=== PATIENT | female | born 1960 | race Caucasian/White ===

== ENCOUNTER 2019-12-17 23:23 | Emergency (ER) | payer MEDICARE, BC ==
[~2019-12-17] VITALS: Ht 165.1 cm; Wt 59.1 kg
[~2019-12-17 23:23] MED LIST: DIVA125C2 PO; HALO10TA13 PO; HALO5TAB PO; LAMO100T PO; LAMO200T2 PO; LAMO25TA5 PO; MULT1CAP44 PO; OMEG-107 PO; PANT40TA4 PO; QUET-1 PO; QUET400T54 PO; SENN-162 PO; SERT100T PO
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
[2019-12-18] MEDS ORDERED: HYDROcodone/acetaminophen 5mg/325mg tablet PO ONE (00:25)
[2019-12-18 00:46] VITALS: BP 94/64
== END 2019-12-18 00:56 | disposition home or self-care (01) ==
LOC: ER 23:23
DX: S22.31XA Fracture of one rib, right side, initial encounter for closed fracture (principal); F31.9 Bipolar disorder, unspecified; Z88.6 Allergy status to analgesic agent; Z88.8 Allergy status to other drugs, medicaments and biological substances; Z79.899 Other long term (current) drug therapy; W01.198A Fall on same level from slipping, tripping and stumbling with subsequent striking against other object, initial encounter; Y93.89 Activity, other specified; Y92.89 Other specified places as the place of occurrence of the external cause; Y99.9 Unspecified external cause status
CPT/HCPCS: 93005; 99284

== ENCOUNTER 2020-03-02 16:47 | Emergency (ER) | payer MEDICARE, BC ==
[~2020-03-02] VITALS: Ht 162.6 cm; Wt 118.0 kg
[~2020-03-02 16:47] MED LIST changes: +DIVA-81 PO; -DIVA125C2 PO; -HALO10TA13 PO; -HALO5TAB PO; +IBUP-1985 PO; -LAMO100T PO; -LAMO200T2 PO; +LAMO25TA41 PO; -MULT1CAP44 PO; -OMEG-107 PO; -QUET-1 PO; -QUET400T54 PO; -SENN-162 PO; -SERT100T PO; +ZIPR20CA12 PO
[2020-03-02] MEDS ORDERED: LITH300C PO (17:07)
[2020-03-02] MEDS ORDERED: QUET-1 PO (17:07)
[2020-03-02] MEDS ORDERED: QUET400T PO (17:07)
[2020-03-02] MEDS ORDERED: BUPR150T8 PO (17:07)
[2020-03-02] MEDS ORDERED: LURA80TA3 PO (17:07)
[2020-03-02 17:36] LABS: BASOPHILS # (AUTO) 0.1 X10'3 (0-0.2); BASOPHILS % (AUTO) 0.8 % (0-1); EOSINOPHILS # (AUTO) 0.1 X10'3 (0-0.9); HEMATOCRIT 37.4 % (35.0-45.0); HEMOGLOBIN 12.7 g/dl (12.0-16.0); LYMPHOCYTES # (AUTO) 3.4 X10'3 (1.1-4.8); LYMPHOCYTES % (AUTO) 56.2 % (21-51); MEAN CORPUSCULAR HEMOGLOBIN 32.8 PG (27.0-31.0); MEAN CORPUSCULAR VOLUME 96.3 FL (78-98); MEAN PLATELET VOLUME 7.6 FL (7.4-10.4); MONOCYTES # (AUTO) 0.6 X10'3 (0-0.9); MONOCYTES % (AUTO) 9.9 % (2-12); NEUTROPHILS # (AUTO) 1.9 X10'3 (1.8-7.7); NEUTROPHILS % (AUTO) 31.1 % (42-75); PLATELET COUNT 387 X10'3 (140-440); RED BLOOD COUNT 3.88 X10'6 (4.20-5.60); RED CELL DISTRIBUTION WIDTH 14.1 % (11.5-14.5)
[2020-03-02 17:59] LABS: ALANINE AMINOTRANSFERASE 18 U/L (12-78); ALBUMIN 3.5 G/DL (3.4-5.0); ALBUMIN/GLOBULIN RATIO 1.1 (1.1-1.5); ALKALINE PHOSPHATASE 80 IU/L (46-116); ANION GAP 9 (8-16); ASPARTATE AMINO TRANSFERASE 20 U/L (10-37); BILIRUBIN,TOTAL 0.4 MG/DL (0.1-1.0); BLOOD UREA NITROGEN 11 MG/DL (7-18); BUN/CREATININE RATIO 13.4 (6.6-38.0); CALCIUM 9.2 MG/DL (8.5-10.1); CHLORIDE 106 MMOL/L (99-107); CREATININE 0.82 MG/DL (0.40-0.90); ETHANOL < 0.010 GM/DL (0.0-0.010); GLUCOSE 83 MG/DL (70-104); POTASSIUM 3.2 MMOL/L (3.5-5.1); SODIUM 142 MMOL/L (135-145); TOTAL CARBON DIOXIDE 27.5 MMOL/L (24-32); TOTAL PROTEIN 6.8 G/DL (6.4-8.2); eGFR 71 ML/MIN
[2020-03-02] MEDS ORDERED: potassium Cl 20 mEq SR tablet PO STA (18:15)
--- NOTE | 2020-03-02 18:30 | NUR ---
Pt brought over to ER overflow. PT is talkative and laughing. Given 20 MeQ of Potassium.
[2020-03-02 19:19] LABS: URINE AMPHETAMINE SCREEN NEGATIVE (Neg); URINE BARBITUATE SCREEN NEGATIVE (Neg); URINE BENZODIAZEPINES SCREEN NEGATIVE (Neg); URINE CANNABINOID SCREEN NEGATIVE (Neg); URINE COCAINE SCREEN NEGATIVE (Neg); URINE METHADONE SCREEN NEGATIVE (Neg); URINE OPIATE SCREEN NEGATIVE (Neg); URINE PHENCYCLIDINE SCREEN NEGATIVE (Neg)
--- NOTE | 2020-03-02 20:30 | NUR ---
PT took all HS medications with no issue.
[2020-03-02] MEDS: lurasidone 20mg tablet PO SCH (20:43)
[2020-03-02] MEDS ORDERED: quetiapine 100mg tablet PO SCH (21:00)
[2020-03-02] MEDS ORDERED: lithium carbonate 150mg capsule PO SCH (21:00)
--- NOTE | 2020-03-02 22:20 | NUR ---
PT used the restroom and then went to sleep. RR WNL.
--- NOTE | 2020-03-02 23:37 | NUR ---
PT used restroom
--- NOTE | 2020-03-03 01:00 | NUR ---
Pt asleep on L side, RR even and unlabored
--- NOTE | 2020-03-03 03:00 | NUR ---
Pt sleeping on R side RR WNL
--- NOTE | 2020-03-03 05:35 | NUR ---
PACKET FAXED TO [facility]
--- NOTE | 2020-03-03 07:00 | NUR ---
Pt awake, lying in bed, talking with herself. Answers questions but makes no sense.
[2020-03-03] MEDS: lurasidone 20mg tablet PO SCH (08:00)
[2020-03-03] MEDS ORDERED: buPROPion SR 150mg tablet PO SCH (08:00)
[2020-03-03] MEDS ORDERED: quetiapine 100mg tablet PO SCH (08:00)
--- NOTE | 2020-03-03 09:00 | NUR ---
Pt took all of her AM meds. Ate all of her breakfast.
--- NOTE | 2020-03-03 11:52 | NUR ---
primary RN was sent on a break. pt in bed in no respiratory distress.
[2020-03-03 12:53] VITALS: BP 135/75
== END 2020-03-03 12:55 | disposition home or self-care (01) ==
LOC: ER 16:47
DX: F99 Mental disorder, not otherwise specified (principal); F31.9 Bipolar disorder, unspecified; Z86.69 Personal history of other diseases of the nervous system and sense organs; Z88.8 Allergy status to other drugs, medicaments and biological substances; Z79.899 Other long term (current) drug therapy
CPT/HCPCS: 36415; 80053; 80305; 80320; 85025; 99285

== ENCOUNTER 2022-11-12 17:25 | Emergency (ER) | payer MEDICARE, BC, MEDICAID ==
[~2022-11-12] VITALS: Ht 165.1 cm; Wt 76.9 kg
[~2022-11-12 17:25] MED LIST changes: +BUPR-72 PO; -DIVA-81 PO; -IBUP-1985 PO; -LAMO25TA41 PO; -LAMO25TA5 PO; +LIT300C PO; +LURA80TA2 PO; -PANT40TA4 PO; +QUET100T34 PO; +QUET300T2 PO; +TRAZ-251 PO; -ZIPR20CA12 PO
[2022-11-12 18:29] VITALS: BP 164/92
[2022-11-12] MEDS ORDERED: CYCL-1 PO (21:09)
[2022-11-12] MEDS ORDERED: PRED20TA PO (21:09)
[2022-11-12] MEDS ORDERED: cyclobenzaprine 10mg tablet PO ONE (21:10)
[2022-11-12] MEDS ORDERED: predniSONE 20 mg tablet PO ONE (21:10)
== END 2022-11-12 21:45 | disposition home or self-care (01) ==
LOC: ER 17:26
DX: M54.2 Cervicalgia (principal); R21 Rash and other nonspecific skin eruption; F31.9 Bipolar disorder, unspecified; Z86.69 Personal history of other diseases of the nervous system and sense organs; Z88.8 Allergy status to other drugs, medicaments and biological substances; Z79.899 Other long term (current) drug therapy
CPT/HCPCS: 99283; J7512

== ENCOUNTER 2022-11-16 17:12 | Emergency (ER) | payer MEDICARE, BC, MEDICAID ==
[~2022-11-16] VITALS: Ht 165.1 cm; Wt 77.0 kg
[~2022-11-16 17:12] MED LIST changes: +CYCL-1 PO; +PRED20TA PO
[2022-11-16 17:16] VITALS: BP 138/91
[2022-11-16] MEDS ORDERED: LIDOcaine 1% W/epiNEPHrine 1:100,000 20ml vial SQ ONE (19:40)
[2022-11-16] MEDS ORDERED: TETanus/Pertussis (Acell)/Diphther VAC/PF (Tdap-Adult) 0.5ml syringe IMVAC ONE (20:00)
[2022-11-16] MEDS ORDERED: cephalexin 500mg capsule PO ONE (20:35)
[2022-11-16] MEDS ORDERED: CEPH-268 PO (20:38)
== END 2022-11-16 21:21 | disposition home or self-care (01) ==
LOC: ER 17:12
DX: S61.211A Laceration without foreign body of left index finger without damage to nail, initial encounter (principal); F31.9 Bipolar disorder, unspecified; Z88.8 Allergy status to other drugs, medicaments and biological substances; Z79.899 Other long term (current) drug therapy; X58.XXXA Exposure to other specified factors, initial encounter; Y93.89 Activity, other specified; Y92.89 Other specified places as the place of occurrence of the external cause; Y99.8 Other external cause status
CPT/HCPCS: 12001; 90471; 90715; 99283; A6449

== ENCOUNTER 2022-12-27 14:35 | Emergency (ER) | payer MEDICARE, BC, MEDICAID ==
[~2022-12-27] VITALS: Ht 165.1 cm; Wt 77.3 kg
[~2022-12-27 14:35] MED LIST changes: -PRED20TA PO
[2022-12-27] MEDS ORDERED: LITH450T2 PO ×2 (15:05→15:18)
[2022-12-27] MEDS ORDERED: BACL20TA PO (15:05)
[2022-12-27] MEDS ORDERED: GABA-530 PO (15:05)
[2022-12-27] MEDS ORDERED: BUPR150T8 PO (15:05)
[2022-12-27] MEDS ORDERED: HALO2TAB PO (15:05)
[2022-12-27] MEDS ORDERED: LEVO50TA66 PO (15:05)
[2022-12-27] MEDS ORDERED: PANT-47 PO (15:05)
[2022-12-27] MEDS ORDERED: LURA80TA2 PO (15:12)
[2022-12-27] MEDS ORDERED: ACET-1130 (15:12)
[2022-12-27 15:20] LABS: BASOPHILS # (AUTO) 0.1 X10'3 (0-0.2); BASOPHILS % (AUTO) 0.8 % (0-1); EOSINOPHILS % (AUTO) 0.4 % (0-6); HEMATOCRIT 40.8 % (35.0-45.0); HEMOGLOBIN 13.8 g/dl (12.0-16.0); LYMPHOCYTES # (AUTO) 1.9 X10'3 (1.1-4.8); LYMPHOCYTES % (AUTO) 20.2 % (21-51); MEAN CORPUSCULAR HEMOGLOBIN 31.5 PG (27.0-31.0); MEAN CORPUSCULAR VOLUME 92.8 FL (78-98); MEAN PLATELET VOLUME 7.9 FL (7.4-10.4); MONOCYTES # (AUTO) 0.8 X10'3 (0-0.9); MONOCYTES % (AUTO) 8.8 % (2-12); NEUTROPHILS # (AUTO) 6.5 X10'3 (1.8-7.7); NEUTROPHILS % (AUTO) 69.8 % (42-75); PLATELET COUNT 521 X10'3 (140-440); RED BLOOD COUNT 4.39 X10'6 (4.20-5.60); RED CELL DISTRIBUTION WIDTH 14.2 % (11.5-14.5); WHITE BLOOD COUNT 9.4 X10'3 (4.5-11.0)
[2022-12-27 15:46] LABS: ALANINE AMINOTRANSFERASE 89 U/L (12-78); ALBUMIN 4.1 G/DL (3.4-5.0); ALBUMIN/GLOBULIN RATIO 1.2 (1.1-1.5); ALKALINE PHOSPHATASE 91 IU/L (46-116); ANION GAP 11 (8-16); ASPARTATE AMINO TRANSFERASE 129 U/L (10-37); BILIRUBIN,TOTAL 0.6 MG/DL (0.1-1.0); BLOOD UREA NITROGEN 18 MG/DL (7-18); CALCIUM 9.9 MG/DL (8.5-10.1); CHLORIDE 99 MMOL/L (99-107); CREATININE 0.72 MG/DL (0.40-0.90); ETHANOL < 0.010 GM/DL (0.0-0.010); GLUCOSE 74 MG/DL (70-104); SODIUM 138 MMOL/L (135-145); TOTAL PROTEIN 7.4 G/DL (6.4-8.2); eGFR 82 ML/MIN
[2022-12-27 15:48] LABS: POTASSIUM 2.9 MMOL/L (3.5-5.1)
--- NOTE | 2022-12-27 15:48 | NUR ---
Pt. ambulated over from the main ER accompanied by
[2022-12-27] MEDS ORDERED: POTASSIUM BICARB 20meq eff tab 20 MEQ TABLET.EFF PO STA (15:55)
[2022-12-27] MEDS ORDERED: POTASSIUM BICARB 20meq eff tab 20 MEQ TABLET.EFF PO ONE (16:05)
[2022-12-27] MEDS ORDERED: POTASSIUM BICARBONATE/CIT AC 10 MEQ TABLET.EFF PO ONE (16:05)
--- NOTE | 2022-12-27 16:24 | NUR ---
Pt's potassium level was low upon admission and was replaced with ordered oral potassium. She is eating a snack at bedside at this time. Pt. was encouraged by this business writer to drink plenty of fluids so she can provide a urine sample.
--- NOTE | 2022-12-27 17:52 | NUR ---
Pt. was cooperative with assessment. She is A&O x1 to name only. Pt. currently denies any S/I or A/V/CARRILLO and does not appear to be internally preoccupied. Pt. does report paranoid delusions that random others want to hurt her.
--- NOTE | 2022-12-27 18:30 | NUR ---
Per rim fire charger operator, med recc was completed. Pt's home medications were taken to pharmacy.
[2022-12-27 18:40] LABS: CLARITY,URINE SLIGHTLY CLOUDY (Clear); COLOR,URINE YELLOW (Yellow); GLUCOSE, URINE NEGATIVE (Neg); KETONES,URINE 40 mg/dl (Neg); LEUKOCYTE ESTERASE ,URINE NEGATIVE (Neg); NITRITES, URINE NEGATIVE (Neg); OCCULT BLOOD,URINE NEGATIVE (Neg); PROTEIN,URINE TRACE mg/dl (Neg); UROBILINOGEN,URINE 0.2 E.U/dL (0.2-1.0)
[2022-12-27 18:44] LABS: UA COLLECTION TYPE CLN CATCH MIDSTREAM
[2022-12-27 18:46] LABS: BACTERIA,URINE FEW /HPF (Neg); MUCUS STRANDS MANY /LPF (Neg); RBC,URINE NONE SEEN /HPF (0-2); SQUAMOUS EPITHELIAL CELL,UR MANY /LPF (FEW); WBC,URINE 0-4 /HPF (0-4)
[2022-12-27 18:59] LABS: URINE AMPHETAMINE SCREEN NEGATIVE (Neg); URINE BARBITUATE SCREEN NEGATIVE (Neg); URINE BENZODIAZEPINES SCREEN NEGATIVE (Neg); URINE CANNABINOID SCREEN NEGATIVE (Neg); URINE COCAINE SCREEN NEGATIVE (Neg); URINE METHADONE SCREEN NEGATIVE (Neg); URINE OPIATE SCREEN NEGATIVE (Neg); URINE PHENCYCLIDINE SCREEN NEGATIVE (Neg)
--- NOTE | 2022-12-27 20:30 | NUR ---
Patient sleeping in bed. Noted to be snoring. Will continue to monitor.
--- NOTE | 2022-12-27 22:58 | NUR ---
Faxed [facility] documents at this time.
--- NOTE | 2022-12-28 00:15 | NUR ---
Patient got up to use BR. Voided x 1. Back to bed and asleep within a few minutes.
--- NOTE | 2022-12-28 02:28 | NUR ---
Patient sleeping at this time. No complaints noted. Will continue to monitor.
--- NOTE | 2022-12-28 03:00 | NUR ---
Faxed patient's med req to pharmacy at this time. Up to BR recently and back to bed. Sleeping continues. Addendum: 12/28/22 at 0340 by YUNIEL Asked ER DR. MARTINES if she wanted to have a follow up K+ level drawn this morning post crit lab 2.9 from yesterday. states if she was replaced, she should be okay.
--- NOTE | 2022-12-28 03:39 | NUR ---
Called pharmacy to verify they received med rec. They confirmed that they received it.
[2022-12-28] MEDS ORDERED: traZODone 50mg tablet PO PRN (03:40)
--- NOTE | 2022-12-28 03:51 | NUR ---
Requested a new bandaid since she got her bandaid wet from washing her hands.
--- NOTE | 2022-12-28 05:57 | NUR ---
Patient resting on right side in bed. Will continue to monitor.
--- NOTE | 2022-12-28 06:30 | NUR ---
Pt is lying in bed, she appears to be sleeping.
--- NOTE | 2022-12-28 08:30 | NUR ---
Pt is awake eating breakfast. Pt is A/O X 4. Pt states that she feels better and is amazed at how quick she got better with God's help. Pt is religiously preoccupied. Pt states she hears the voice of God speaking to her and heard it this morning.
[2022-12-28] MEDS: pantoprazole 40mg Tablet.DR PO SCH (08:31)
[2022-12-28] MEDS: gabapentin 100mg capsule PO SCH (08:31)
[2022-12-28] MEDS: lurasidone 60mg tablet PO SCH ×2 (08:31→19:56)
[2022-12-28] MEDS: lurasidone 20mg tablet PO SCH ×2 (08:31→19:56)
[2022-12-28] MEDS: quetiapine 100mg tablet PO SCH (08:31)
[2022-12-28] MEDS: buPROPion SR 100mg tab PO SCH (08:31)
[2022-12-28] MEDS: levoTHYROXINE 25mcg tablet PO SCH (08:32)
--- NOTE | 2022-12-28 10:08 | NUR ---
Pt ambulated to the bathroom.
--- NOTE | 2022-12-28 11:30 | NUR ---
Pt is sitting quietly in her room.
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
--- NOTE | 2022-12-28 12:57 | NUR ---
D[place] pt ask from her room, "can I soak my foot in Epsom salts?" Went to pt's room, her eyes are closed and she appears to be sleeping.
--- NOTE | 2022-12-28 14:23 | NUR ---
Pt is lying in bed on her right side, she appears to be sleeping.
--- NOTE | 2022-12-28 15:40 | NUR ---
Pt would seem to be responding to internal stimuli, she is talking and laughing to herself in her room.
--- NOTE | 2022-12-28 16:46 | NUR ---
Pt is awake and interacting appropriately with staff. Pt is friendly and sociable.
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
--- NOTE | 2022-12-28 17:46 | NUR ---
Pt moved from ER overflow bed 26 to ER main bed 13. Ambulated off the unit accompanied by fabiola.
--- NOTE | 2022-12-28 19:20 | NUR ---
Patient is pleasant and cooperative; laying in bed quietly.
[2022-12-28] MEDS ORDERED: lithium carbonate 150mg capsule PO SCH (21:00)
[2022-12-28] MEDS ORDERED: haloperidol 1mg tablet PO SCH (21:00)
[2022-12-28] MEDS ORDERED: quetiapine fumarate ER 300mg tablet PO SCH (21:00)
[2022-12-28] MEDS ORDERED: baclofen 10mg tablet PO SCH (21:00)
--- NOTE | 2022-12-28 21:09 | NUR ---
Patient is pleasant and cooperative; compliant with all medication. PRN Trazodone provided. Patient denies SI, HI, A/VH. Patient is laying quietly in bed.
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
--- NOTE | 2022-12-29 03:05 | NUR ---
Patient up for the restroom; easily directerd and laying back down at this time.
--- NOTE | 2022-12-29 05:05 | NUR ---
Patient appears to be sleeping with no apparent difficulties; self repositioning.
--- NOTE | 2022-12-29 06:48 | NUR ---
Pt. ambulated over from the main ER accomapanied by staff. She is up using the bathroom at this time and exhibits inappropriate laughter at intervals. Pt. appears to be responding to internal stimuli and talks aloud to herself.
[2022-12-29] MEDS: lurasidone 20mg tablet PO SCH (07:29)
[2022-12-29] MEDS: gabapentin 100mg capsule PO SCH (07:29)
[2022-12-29] MEDS: lurasidone 60mg tablet PO SCH (07:29)
[2022-12-29] MEDS: levoTHYROXINE 25mcg tablet PO SCH (07:29)
[2022-12-29] MEDS: pantoprazole 40mg Tablet.DR PO SCH (07:30)
[2022-12-29] MEDS: buPROPion SR 100mg tab PO SCH (07:30)
[2022-12-29] MEDS: quetiapine 100mg tablet PO SCH (07:30)
--- NOTE | 2022-12-29 08:30 | NUR ---
Pt. is laying in bed sleeping at this time.
--- NOTE | 2022-12-29 09:25 | NUR ---
Pt's potassium level was redrawn and is WNL, this was endorsed to [facility] who is looking at accepting pt. for placement.
--- NOTE | 2022-12-29 10:00 | NUR ---
Per [facility], pt. has been accepted at [facility] in [place]. No pick-up time specified yet.
--- NOTE | 2022-12-29 10:23 | NUR ---
Pt. is sitting up in bed at this time, she continues to be animated.
--- NOTE | 2022-12-29 12:26 | NUR ---
Pt. is sitting up at bedside eating lunch at this time.
--- NOTE | 2022-12-29 14:28 | NUR ---
Pt. is up at this time in the bathroom taking a "Sponge bath." Will continue to monitor closely.
--- NOTE | 2022-12-29 16:00 | NUR ---
Pt. was discharged from the unit to [facility] in [place] accompanied by regional flatbed truck driver and security. Pt's belongings were returned to her and her medications were sent with her. Pt. is able to contract for safety.
[2022-12-29 16:14] VITALS: BP 122/58
== END 2022-12-29 16:41 ==
LOC: ER 14:35
DX: F25.0 Schizoaffective disorder, bipolar type (principal); Z20.822 Contact with and (suspected) exposure to COVID-19; F31.9 Bipolar disorder, unspecified; Z88.8 Allergy status to other drugs, medicaments and biological substances; Z79.899 Other long term (current) drug therapy; Z88.5 Allergy status to narcotic agent
CPT/HCPCS: 36415; 80053; 80305; 80320; 81001; 84132; 84443; 85025; 87811; 99285

== ENCOUNTER 2023-12-10 17:30 | Inpatient (IN) | payer MEDICARE, BC, MEDICAID ==
[~2023-12-10] VITALS: Ht 162.6 cm; Wt 66.1 kg
[~2023-12-10 17:30] MED LIST changes: +ACET-1130; +BACL20TA PO; -BUPR-72 PO; +BUPR150T8 PO; -CYCL-1 PO; +GABA-530 PO; +HALO2TAB PO; +LEVO50TA66 PO; -LIT300C PO; +LITH450T2 PO; +PANT-47 PO
[2023-12-10 21:03] VITALS: BP 151/85; PULSE 82; RESP 20; TEMP 97.8; O2SAT 93
[2023-12-10 22:08] VITALS: RESP 20; O2SAT 93
[2023-12-11] MEDS ORDERED: QUET200T PO (00:59)
[2023-12-11] MEDS ORDERED: QUET50TA PO (00:59)
[2023-12-11] MEDS ORDERED: PRAZ2CAP2 PO (00:59)
[2023-12-11] MEDS ORDERED: LEVO50TA PO (00:59)
[2023-12-11] MEDS ORDERED: PROPRANOLOL PO (00:59)
[2023-12-11] MEDS ORDERED: DOCU-148 PO (00:59)
[2023-12-11] MEDS ORDERED: LURA80TA2 PO (00:59)
[2023-12-11] MEDS ORDERED: LITH300T3 PO (00:59)
[2023-12-11] MEDS ORDERED: loperamide 2mg capsule PO PRN (05:00)
[2023-12-11 07:00] VITALS: BP 137/70; PULSE 67; RESP 14; TEMP 97.6; O2SAT 93
[2023-12-11] MEDS: QUEtiapine 25mg tablet PO SCH (07:33)
[2023-12-11] MEDS: acetaminophen 325mg tablet PO PRN (07:34)
[2023-12-11] MEDS: lurasidone 20mg tablet PO SCH (07:34)
[2023-12-11] MEDS: PROPRANOLOL 80 MG PO SCH (07:37)
[2023-12-11] MEDS: docusate sod 100mg capsule PO SCH (07:45)
[2023-12-11] MEDS: levoTHYROXINE 25mcg tablet PO SCH (07:45)
[2023-12-11] MEDS: gabapentin 100mg capsule PO SCH (07:45)
[2023-12-11] MEDS: lithium carbonate 150mg capsule PO SCH (07:45)
[2023-12-11 19:30] VITALS: BP 149/82; PULSE 79; RESP 18; TEMP 97; O2SAT 97
[2023-12-11] MEDS: quetiapine 100mg tablet PO SCH (21:22)
[2023-12-11] MEDS: prazosin 1mg capsule PO SCH (21:23)
[2023-12-12] MEDS: traZODone 50mg tablet PO ONE (00:01)
[2023-12-12] MEDS: LORazepam 0.5 MG tablet PO ONE (00:01)
[2023-12-12 07:00] VITALS: RESP 12; O2SAT 97
[2023-12-12 08:00] VITALS: BP 136/67; PULSE 80; RESP 12; TEMP 97.5; O2SAT 97
[2023-12-12 10:43] LABS: BASOPHILS # (AUTO) 0.1 X10'3 (0-0.2); BASOPHILS % (AUTO) 1.1 % (0-1); EOSINOPHILS # (AUTO) 0.3 X10'3 (0-0.9); EOSINOPHILS % (AUTO) 4.9 % (0-6); HEMATOCRIT 39.2 % (35.0-45.0); HEMOGLOBIN 13.1 g/dl (12.0-16.0); LYMPHOCYTES # (AUTO) 2.7 X10'3 (1.1-4.8); LYMPHOCYTES % (AUTO) 43.9 % (21-51); MEAN CORPUSCULAR HEMOGLOBIN 31.5 PG (27.0-31.0); MEAN CORPUSCULAR HGB CONC 33.4 g/dL (33.0-36.5); MEAN CORPUSCULAR VOLUME 94.3 FL (78-98); MEAN PLATELET VOLUME 8.3 FL (7.4-10.4); MONOCYTES # (AUTO) 0.7 X10'3 (0-0.9); NEUTROPHILS # (AUTO) 2.3 X10'3 (1.8-7.7); NEUTROPHILS % (AUTO) 38.1 % (42-75); PLATELET COUNT 412 X10'3 (140-440); RED BLOOD COUNT 4.15 X10'6 (4.20-5.60); RED CELL DISTRIBUTION WIDTH 13.9 % (11.5-14.5); WHITE BLOOD COUNT 6.2 X10'3 (4.5-11.0)
[2023-12-12 10:44] LABS: ALANINE AMINOTRANSFERASE 17 U/L (12-78); ALBUMIN 3.6 G/DL (3.4-5.0); ALKALINE PHOSPHATASE 94 IU/L (46-116); ANION GAP 9 (8-16); ASPARTATE AMINO TRANSFERASE 13 U/L (10-37); BILIRUBIN,TOTAL 0.4 MG/DL (0.1-1.0); BLOOD UREA NITROGEN 14 MG/DL (7-18); BUN/CREATININE RATIO 15.2 (10.0-20.0); CALCIUM 9.3 MG/DL (8.5-10.1); CHLORIDE 103 MMOL/L (99-107); CHOL/HDL RATIO 3.2 (0.00-4.99); CHOLESTEROL 235 MG/DL (0-200); CREATININE 0.92 MG/DL (0.40-0.90); GLUCOSE 120 MG/DL (70-104); HDL CHOLESTEROL 74 MG/DL (35-60); LDL CHOLESTEROL 136 MG/DL (50-100); POTASSIUM 3.6 MMOL/L (3.5-5.1); SODIUM 137 MMOL/L (135-145); TOTAL CARBON DIOXIDE 24.9 MMOL/L (24-32); TOTAL PROTEIN 7.3 G/DL (6.4-8.2); TRIGLYCERIDES 63 MG/DL (20-135); eCRCL 54 ML/MIN; eGFR 62 ML/MIN
[2023-12-12 19:00] VITALS: RESP 16; O2SAT 99
[2023-12-12 20:00] VITALS: BP 134/72; PULSE 70; RESP 16; TEMP 98.8; O2SAT 99
[2023-12-13 07:00] VITALS: RESP 16; O2SAT 99
[2023-12-13 07:27] VITALS: BP 138/69; PULSE 62; RESP 16; TEMP 98; O2SAT 99
[2023-12-13 09:05] LABS: THYROID STIMULATING HORMONE 3.13 ulU/ml (0.34-4.50)
[2023-12-13 19:12] VITALS: RESP 16; O2SAT 99
[2023-12-13 19:25] VITALS: BP 121/72; PULSE 83; RESP 19; TEMP 97.6; O2SAT 98
[2023-12-13] MEDS: traZODone 50mg tablet PO PRN (22:28)
[2023-12-14 07:00] VITALS: RESP 20; O2SAT 95
[2023-12-14] MEDS: lurasidone 60mg tablet PO SCH (07:56)
[2023-12-14 08:00] VITALS: BP 129/71; PULSE 71; RESP 20; TEMP 97.7; O2SAT 95
[2023-12-14] MEDS: lithium carbonate 150mg capsule PO SCH (08:00)
[2023-12-14] MEDS: propranolol LA 60 MG cap.SA.24H PO SCH (08:17)
[2023-12-14] MEDS: ondansetron 4mg rapidly disintigrating tab PO PRN (08:45)
[2023-12-14] MEDS: acetaminophen 325mg tablet PO PRN (09:14)
[2023-12-14 19:00] VITALS: RESP 18; O2SAT 98
[2023-12-14 20:00] VITALS: BP 141/72; PULSE 68; RESP 18; TEMP 98.3; O2SAT 98
[2023-12-14] MEDS: traZODone 50mg tablet PO SCH (21:14)
[2023-12-15 04:33] LABS: BILIRUBIN,URINE NEGATIVE (Neg); CLARITY,URINE SLIGHTLY CLOUDY (Clear); COLOR,URINE STRAW (Yellow); GLUCOSE, URINE NEGATIVE (Neg); KETONES,URINE NEGATIVE (Neg); LEUKOCYTE ESTERASE ,URINE NEGATIVE (Neg); NITRITES, URINE NEGATIVE (Neg); OCCULT BLOOD,URINE NEGATIVE (Neg); PH,URINE 6.5 (4.8-8.0); PROTEIN,URINE NEGATIVE (Neg); UROBILINOGEN,URINE 0.2 E.U/dL (0.2-1.0)
[2023-12-15 04:56] LABS: UA COLLECTION TYPE OTHER
[2023-12-15 04:57] LABS: SQUAMOUS EPITHELIAL CELL,UR MANY /LPF (FEW)
[2023-12-15 04:58] LABS: BACTERIA,URINE FEW /HPF (Neg); RBC,URINE NONE SEEN /HPF (0-2); WBC,URINE 0-4 /HPF (0-4)
[2023-12-15 07:00] VITALS: RESP 18; O2SAT 97
[2023-12-15 08:00] VITALS: BP 127/63; PULSE 63; RESP 18; TEMP 98.1; O2SAT 97
[2023-12-15] MEDS: mag hydrox/Alum hydrox/simeth 30ml oral suspension PO PRN (13:41)
[2023-12-15 19:00] VITALS: BP 137/79; PULSE 58; RESP 18; TEMP 97.5; O2SAT 98
[2023-12-15] MEDS: traZODone 50mg tablet PO ONE (21:58)
[2023-12-16 07:00] VITALS: RESP 14; O2SAT 98
[2023-12-16 08:00] VITALS: BP 96/58; PULSE 55; RESP 14; TEMP 98.5; O2SAT 98
[2023-12-16 19:00] VITALS: RESP 18; O2SAT 98
[2023-12-16 20:31] VITALS: BP 149/75; PULSE 62; RESP 18; TEMP 97.9; O2SAT 98
[2023-12-17 07:00] VITALS: RESP 16; O2SAT 94
[2023-12-17 08:00] VITALS: BP 121/76; PULSE 75; RESP 16; TEMP 98.8; O2SAT 94
[2023-12-17 19:00] VITALS: RESP 16; O2SAT 97
[2023-12-17 20:00] VITALS: BP 124/65; PULSE 60; RESP 16; TEMP 98.7; O2SAT 97
[2023-12-18 07:00] VITALS: BP 114/69; PULSE 60; RESP 16; TEMP 97.7; O2SAT 98
[2023-12-18 16:53] LABS: BILIRUBIN,URINE NEGATIVE (Neg); CLARITY,URINE CLEAR (Clear); COLOR,URINE STRAW (Yellow); GLUCOSE, URINE NEGATIVE (Neg); KETONES,URINE NEGATIVE (Neg); LEUKOCYTE ESTERASE ,URINE NEGATIVE (Neg); NITRITES, URINE NEGATIVE (Neg); OCCULT BLOOD,URINE NEGATIVE (Neg); PROTEIN,URINE NEGATIVE (Neg); UROBILINOGEN,URINE 0.2 E.U/dL (0.2-1.0)
[2023-12-18 16:55] LABS: UA COLLECTION TYPE NON-SPECIFIED
[2023-12-18 19:00] VITALS: RESP 16; O2SAT 99
[2023-12-18 19:55] VITALS: BP 128/67; PULSE 59; RESP 16; TEMP 97.7; O2SAT 99
[2023-12-18] MEDS: docusate sod 100mg capsule PO SCH (20:30)
[2023-12-19] MEDS: magnesium hydroxide 30ml (MOM) UD suspension PO PRN (05:24)
[2023-12-19 07:00] VITALS: RESP 16; O2SAT 97
[2023-12-19 08:00] VITALS: BP 127/52; PULSE 65; RESP 16; TEMP 97.8; O2SAT 97
[2023-12-19 19:00] VITALS: RESP 14; O2SAT 94
[2023-12-19 19:29] VITALS: BP 123/63; PULSE 59; RESP 14; TEMP 97; O2SAT 94
[2023-12-20 07:00] VITALS: RESP 16; O2SAT 94
[2023-12-20 08:00] VITALS: BP 118/62; PULSE 67; RESP 16; TEMP 98.2; O2SAT 94
[2023-12-20] MEDS ORDERED: bisacodyl 10mg suppository rectal RC PRN (14:25)
[2023-12-20] MEDS: magnesium citrate 296ml oral solution PO ONE (14:25)
[2023-12-20 19:00] VITALS: RESP 16; O2SAT 97
[2023-12-20 20:00] VITALS: BP 125/62; PULSE 57; RESP 16; TEMP 98.7; O2SAT 97
[2023-12-21 07:00] VITALS: BP 129/49; PULSE 59; RESP 14; TEMP 97.7; O2SAT 97
[2023-12-21 19:00] VITALS: RESP 16; O2SAT 98
[2023-12-21 20:00] VITALS: BP 142/79; PULSE 68; RESP 16; TEMP 98.4; O2SAT 98
[2023-12-21] MEDS: haloperidol 5mg tablet PO SCH (20:00)
[2023-12-21] MEDS: quetiapine 100mg tablet PO SCH (20:18)
[2023-12-22 07:00] VITALS: BP 129/60; PULSE 65; RESP 18; TEMP 97.4; O2SAT 99
[2023-12-22 19:15] VITALS: PULSE 65; RESP 18; TEMP 97.4; O2SAT 98; O2SAT 99
[2023-12-22 20:00] VITALS: BP 144/65; PULSE 66; RESP 18; TEMP 98.5; O2SAT 98
[2023-12-22] MEDS: polyethylene glycol 3350 17gm powd pack PO SCH (20:33)
[2023-12-23 07:30] VITALS: BP 148/79; PULSE 65; RESP 16; TEMP 97.8; O2SAT 97
[2023-12-23 19:30] VITALS: BP 158/80; PULSE 56; RESP 18; TEMP 97.7; O2SAT 98
[2023-12-23 20:00] VITALS: BP 158/80; PULSE 56; RESP 18; TEMP 97.7; O2SAT 98
[2023-12-24 07:00] VITALS: RESP 18; O2SAT 97
[2023-12-24] MEDS: lithium carbonate 150mg capsule PO SCH (07:22)
[2023-12-24 08:00] VITALS: BP 136/55; PULSE 65; RESP 18; TEMP 98.3; O2SAT 97
[2023-12-24 19:00] VITALS: RESP 16; O2SAT 100
[2023-12-24 20:10] VITALS: BP 147/107; PULSE 62; RESP 16; TEMP 96.9; O2SAT 100
[2023-12-25 07:00] VITALS: RESP 16; O2SAT 94
[2023-12-25 08:00] VITALS: BP 127/63; PULSE 66; RESP 16; TEMP 98.4; O2SAT 94
[2023-12-25 19:00] VITALS: RESP 20; O2SAT 96
[2023-12-25 20:00] VITALS: BP 152/78; PULSE 72; RESP 20; TEMP 98.3; O2SAT 96
[2023-12-26 07:00] VITALS: RESP 16; O2SAT 96
[2023-12-26 08:00] VITALS: BP 128/62; PULSE 67; RESP 16; TEMP 97.6; O2SAT 96
[2023-12-26 19:50] VITALS: BP 152/71; PULSE 58; RESP 16; TEMP 98.2; O2SAT 98
[2023-12-27 07:31] VITALS: RESP 16
[2023-12-27 19:43] VITALS: RESP 16
[2023-12-28 07:00] VITALS: BP 153/72; PULSE 82; RESP 16; TEMP 98.4; O2SAT 100
[2023-12-28 19:00] VITALS: RESP 17; O2SAT 99
[2023-12-28 19:59] VITALS: BP 147/78; PULSE 95; RESP 17; TEMP 96.7; O2SAT 99
[2023-12-29 07:00] VITALS: RESP 16; O2SAT 94
[2023-12-29 07:41] LABS: ALANINE AMINOTRANSFERASE 46 U/L (12-78); ALBUMIN 4.2 G/DL (3.4-5.0); ALBUMIN/GLOBULIN RATIO 1.1 (1.1-1.5); ALKALINE PHOSPHATASE 104 IU/L (46-116); ANION GAP 18 (8-16); ASPARTATE AMINO TRANSFERASE 27 U/L (10-37); BILIRUBIN,TOTAL 0.5 MG/DL (0.1-1.0); BLOOD UREA NITROGEN 24 MG/DL (7-18); CALCIUM 9.8 MG/DL (8.5-10.1); CHLORIDE 102 MMOL/L (99-107); CREATININE 0.75 MG/DL (0.40-0.90); GLUCOSE 117 MG/DL (70-104); POTASSIUM 3.4 MMOL/L (3.5-5.1); SODIUM 140 MMOL/L (135-145); TOTAL CARBON DIOXIDE 19.9 MMOL/L (24-32); TOTAL PROTEIN 8.2 G/DL (6.4-8.2); eCRCL 66 ML/MIN; eGFR 78 ML/MIN
[2023-12-29 08:00] VITALS: BP 148/100; PULSE 118; RESP 16; TEMP 97.1; O2SAT 94
[2023-12-29 08:29] LABS: BASOPHILS # (AUTO) 0.1 X10'3 (0-0.2); BASOPHILS % (AUTO) 0.7 % (0-1); EOSINOPHILS % (AUTO) 0.2 % (0-6); HEMATOCRIT 44.8 % (35.0-45.0); LYMPHOCYTES # (AUTO) 3.9 X10'3 (1.1-4.8); LYMPHOCYTES % (AUTO) 35.3 % (21-51); MEAN CORPUSCULAR HEMOGLOBIN 31.3 PG (27.0-31.0); MEAN CORPUSCULAR HGB CONC 33.4 g/dL (33.0-36.5); MEAN CORPUSCULAR VOLUME 93.7 FL (78-98); MEAN PLATELET VOLUME 8.3 FL (7.4-10.4); MONOCYTES # (AUTO) 1.2 X10'3 (0-0.9); NEUTROPHILS # (AUTO) 5.9 X10'3 (1.8-7.7); NEUTROPHILS % (AUTO) 52.8 % (42-75); PLATELET COUNT 586 X10'3 (140-440); RED BLOOD COUNT 4.77 X10'6 (4.20-5.60); RED CELL DISTRIBUTION WIDTH 13.9 % (11.5-14.5); WHITE BLOOD COUNT 11.1 X10'3 (4.5-11.0)
[2023-12-29 19:30] VITALS: BP 155/79; PULSE 116; RESP 18; TEMP 97.1; O2SAT 97
[2023-12-30 05:03] VITALS: PULSE 100
[2023-12-30] MEDS: haloperidol lactate 5mg/ml inj ONE ×2 (11:30→13:00)
[2023-12-30] MEDS: LORazepam 2 mg/ml vial ONE ×2 (11:31→13:00)
[2023-12-30 20:30] VITALS: BP 137/77; PULSE 116; RESP 18; TEMP 98.2; O2SAT 98
[2023-12-31 19:30] VITALS: RESP 16
[2024-01-01 07:00] VITALS: RESP 16
[2024-01-01 08:00] VITALS: RESP 16
[2024-01-01 19:00] VITALS: RESP 16
[2024-01-01 19:52] VITALS: RESP 16
[2024-01-02 07:00] VITALS: RESP 16
[2024-01-02 08:00] VITALS: RESP 16
[2024-01-02 19:00] VITALS: RESP 16
[2024-01-02] MEDS: LORazepam 2 mg/ml vial IM ONE (19:20)
[2024-01-02] MEDS: haloperidol lactate 5mg/ml inj IM ONE (19:20)
[2024-01-02] MEDS: LORazepam 2 mg/ml vial ONE (19:32)
[2024-01-02] MEDS: haloperidol lactate 5mg/ml inj ONE (19:33)
[2024-01-02 20:00] VITALS: RESP 14
[2024-01-03 06:40] VITALS: RESP 16
[2024-01-03 08:52] VITALS: RESP 14
[2024-01-03 19:00] VITALS: RESP 18; O2SAT 98
[2024-01-03 20:00] VITALS: RESP 18
[2024-01-04] MEDS: LORazepam 1 MG tablet PO PRN (01:23)
[2024-01-04 07:00] VITALS: RESP 16; O2SAT 100
[2024-01-04 07:30] VITALS: BP 141/91; PULSE 92; RESP 16; TEMP 97.3; O2SAT 100
[2024-01-04 16:37] LABS: BILIRUBIN,URINE NEGATIVE (Neg); CLARITY,URINE CLOUDY (Clear); COLOR,URINE YELLOW (Yellow); GLUCOSE, URINE NEGATIVE (Neg); KETONES,URINE NEGATIVE (Neg); LEUKOCYTE ESTERASE ,URINE LARGE (Neg); NITRITES, URINE NEGATIVE (Neg); OCCULT BLOOD,URINE MODERATE (Neg); PROTEIN,URINE TRACE mg/dl (Neg); UROBILINOGEN,URINE 0.2 E.U/dL (0.2-1.0)
[2024-01-04 16:38] LABS: UA COLLECTION TYPE NON-SPECIFIED
[2024-01-04 16:47] LABS: MUCUS STRANDS FEW /LPF (Neg); SQUAMOUS EPITHELIAL CELL,UR MODERATE /LPF (FEW); WBC,URINE TNTC /HPF (0-4)
[2024-01-04 16:48] LABS: BACTERIA,URINE 2+ /HPF (Neg)
[2024-01-04 16:49] LABS: WBC CLUMPS,URINE FEW /HPF (NEGATIVE)
[2024-01-04 16:50] LABS: RBC,URINE 0-2 /HPF (0-2)
[2024-01-04 19:00] VITALS: RESP 16
[2024-01-04 19:31] VITALS: RESP 16
[2024-01-04] MEDS: haloperidol lactate 5mg/ml inj IM STA (23:10)
[2024-01-04] MEDS: LORazepam 2 mg/ml vial IM STA (23:10)
[2024-01-04] MEDS: LORazepam 2 mg/ml vial ONE (23:26)
[2024-01-04] MEDS: haloperidol lactate 5mg/ml inj ONE (23:27)
[2024-01-05 07:00] VITALS: BP 123/74; PULSE 78; RESP 14; TEMP 97.4; O2SAT 98
[2024-01-05] MEDS: sulfamethoxazole/trimethoprim DS (800/160mg) tablet PO ONE (14:18)
[2024-01-05 19:22] VITALS: RESP 16
[2024-01-05 19:58] VITALS: RESP 16
[2024-01-05 22:12] VITALS: BP 96/54; PULSE 67; RESP 16; O2SAT 96
[2024-01-05] MEDS: sulfamethoxazole/trimethoprim DS (800/160mg) tablet PO SCH (22:14)
[2024-01-06 07:00] VITALS: BP 98/50; PULSE 59; RESP 20; TEMP 97; O2SAT 99
[2024-01-06] MEDS: lactose-reduced food (Ensure Enlive) - 237ml bottle PO SCH (18:00)
[2024-01-06 19:30] VITALS: BP 112/54; PULSE 72; RESP 14; RESP 16; TEMP 97.7; O2SAT 99
[2024-01-07 07:00] VITALS: RESP 16; O2SAT 96
[2024-01-07 08:00] VITALS: BP 102/71; PULSE 106; RESP 16; TEMP 97.5; O2SAT 96
[2024-01-07] MEDS: multivitamins, therapeutics tablet PO SCH (08:49)
[2024-01-07 19:00] VITALS: BP 113/64; PULSE 63; RESP 18; TEMP 98.9; O2SAT 96
[2024-01-08 07:09] VITALS: RESP 16; O2SAT 96
[2024-01-08 07:17] VITALS: RESP 14
[2024-01-08 11:17] LABS: BASOPHILS % (AUTO) 0.5 % (0-1); EOSINOPHILS # (AUTO) 0.2 X10'3 (0-0.9); EOSINOPHILS % (AUTO) 2.5 % (0-6); HEMATOCRIT 35.5 % (35.0-45.0); HEMOGLOBIN 11.9 g/dl (12.0-16.0); LYMPHOCYTES # (AUTO) 2.3 X10'3 (1.1-4.8); MEAN CORPUSCULAR HEMOGLOBIN 31.2 PG (27.0-31.0); MEAN CORPUSCULAR HGB CONC 33.6 g/dL (33.0-36.5); MEAN CORPUSCULAR VOLUME 92.7 FL (78-98); MONOCYTES # (AUTO) 1.2 X10'3 (0-0.9); MONOCYTES % (AUTO) 12.4 % (2-12); NEUTROPHILS # (AUTO) 5.9 X10'3 (1.8-7.7); NEUTROPHILS % (AUTO) 60.6 % (42-75); PLATELET COUNT 427 X10'3 (140-440); RED BLOOD COUNT 3.83 X10'6 (4.20-5.60); RED CELL DISTRIBUTION WIDTH 13.9 % (11.5-14.5); WHITE BLOOD COUNT 9.7 X10'3 (4.5-11.0)
[2024-01-08 11:27] LABS: ALANINE AMINOTRANSFERASE 29 U/L (12-78); ALBUMIN/GLOBULIN RATIO 0.9 (1.1-1.5); ALKALINE PHOSPHATASE 75 IU/L (46-116); ANION GAP 6 (8-16); ASPARTATE AMINO TRANSFERASE 23 U/L (10-37); BILIRUBIN,TOTAL 0.2 MG/DL (0.1-1.0); BLOOD UREA NITROGEN 16 MG/DL (7-18); BUN/CREATININE RATIO 15.7 (10.0-20.0); CALCIUM 8.5 MG/DL (8.5-10.1); CHLORIDE 102 MMOL/L (99-107); CREATININE 1.02 MG/DL (0.40-0.90); GLUCOSE 104 MG/DL (70-104); POTASSIUM 3.9 MMOL/L (3.5-5.1); SODIUM 138 MMOL/L (135-145); TOTAL CARBON DIOXIDE 29.8 MMOL/L (24-32); TOTAL PROTEIN 6.4 G/DL (6.4-8.2); eCRCL 49 ML/MIN; eGFR 55 ML/MIN
[2024-01-08 12:00] LABS: LITHIUM 0.6 MMOL/L (0.8-1.2)
[2024-01-08 20:00] VITALS: RESP 17
[2024-01-08 21:53] VITALS: BP 127/53; PULSE 68; RESP 16; O2SAT 96
[2024-01-09 07:30] VITALS: BP 110/77; PULSE 81; RESP 16; TEMP 98.1; O2SAT 96
[2024-01-09 20:00] VITALS: BP 126/61; PULSE 84; RESP 16; TEMP 97; O2SAT 98
[2024-01-10 07:00] VITALS: RESP 16; O2SAT 96
[2024-01-10 08:00] VITALS: RESP 16
[2024-01-10 13:55] LABS: BILIRUBIN,URINE NEGATIVE (Neg); CLARITY,URINE CLOUDY (Clear); COLOR,URINE YELLOW (Yellow); GLUCOSE, URINE NEGATIVE (Neg); KETONES,URINE NEGATIVE (Neg); LEUKOCYTE ESTERASE ,URINE NEGATIVE (Neg); NITRITES, URINE NEGATIVE (Neg); OCCULT BLOOD,URINE NEGATIVE (Neg); PH,URINE 7.5 (4.8-8.0); PROTEIN,URINE NEGATIVE (Neg); UA COLLECTION TYPE CLN CATCH MIDSTREAM; UROBILINOGEN,URINE 0.2 E.U/dL (0.2-1.0)
[2024-01-10 14:05] LABS: AMORPHOUS PHOSPHATES 2+; SQUAMOUS EPITHELIAL CELL,UR MANY /LPF (FEW)
[2024-01-10 14:06] LABS: BACTERIA,URINE 1+ /HPF (Neg); RBC,URINE 0-2 /HPF (0-2); WBC,URINE 0-4 /HPF (0-4)
[2024-01-10 19:00] VITALS: RESP 18; O2SAT 97
[2024-01-10 20:00] VITALS: RESP 18
[2024-01-10 22:00] VITALS: BP 146/86; PULSE 94; RESP 18; TEMP 98.5; O2SAT 97
[2024-01-11 07:00] VITALS: BP 143/60; PULSE 80; RESP 16; O2SAT 97
[2024-01-11] MEDS: haloperidol lactate 5mg/ml inj ONE ×2 (09:34→17:14)
[2024-01-11] MEDS: LORazepam 2 mg/ml vial ONE ×2 (09:35→17:14)
[2024-01-11 19:00] VITALS: RESP 18; O2SAT 96
[2024-01-11 20:00] VITALS: BP 147/75; PULSE 77; RESP 18; TEMP 97.4; O2SAT 96
[2024-01-12 19:00] VITALS: RESP 18; O2SAT 96
[2024-01-12 20:00] VITALS: BP 179/86; PULSE 117; RESP 18; TEMP 97.5; O2SAT 96
[2024-01-13 07:30] VITALS: RESP 16
[2024-01-13 13:23] LABS: BASOPHILS # (AUTO) 0.1 X10'3 (0-0.2); BASOPHILS % (AUTO) 1.7 % (0-1); EOSINOPHILS # (AUTO) 0.1 X10'3 (0-0.9); EOSINOPHILS % (AUTO) 2.4 % (0-6); HEMATOCRIT 40.2 % (35.0-45.0); HEMOGLOBIN 13.5 g/dl (12.0-16.0); LYMPHOCYTES # (AUTO) 2.6 X10'3 (1.1-4.8); LYMPHOCYTES % (AUTO) 48.6 % (21-51); MEAN CORPUSCULAR HEMOGLOBIN 31.4 PG (27.0-31.0); MEAN CORPUSCULAR HGB CONC 33.7 g/dL (33.0-36.5); MEAN CORPUSCULAR VOLUME 93.3 FL (78-98); MEAN PLATELET VOLUME 7.2 FL (7.4-10.4); MONOCYTES # (AUTO) 0.6 X10'3 (0-0.9); MONOCYTES % (AUTO) 11.2 % (2-12); NEUTROPHILS % (AUTO) 36.1 % (42-75); PLATELET COUNT 563 X10'3 (140-440); RED BLOOD COUNT 4.31 X10'6 (4.20-5.60); RED CELL DISTRIBUTION WIDTH 14.2 % (11.5-14.5); WHITE BLOOD COUNT 5.5 X10'3 (4.5-11.0)
[2024-01-13 13:42] LABS: ALANINE AMINOTRANSFERASE 30 U/L (12-78); ALBUMIN 3.2 G/DL (3.4-5.0); ALBUMIN/GLOBULIN RATIO 0.8 (1.1-1.5); ALKALINE PHOSPHATASE 81 IU/L (46-116); ANION GAP 5 (8-16); ASPARTATE AMINO TRANSFERASE 17 U/L (10-37); BILIRUBIN,TOTAL 0.3 MG/DL (0.1-1.0); BLOOD UREA NITROGEN 10 MG/DL (7-18); BUN/CREATININE RATIO 14.9 (10.0-20.0); CALCIUM 8.6 MG/DL (8.5-10.1); CHLORIDE 106 MMOL/L (99-107); CREATININE 0.67 MG/DL (0.40-0.90); GLUCOSE 130 MG/DL (70-104); POTASSIUM 3.4 MMOL/L (3.5-5.1); SODIUM 145 MMOL/L (135-145); TOTAL CARBON DIOXIDE 34.5 MMOL/L (24-32); eCRCL 74 ML/MIN; eGFR 89 ML/MIN
[2024-01-13 19:00] VITALS: BP 146/74; PULSE 91; RESP 18; TEMP 97.3; O2SAT 99
[2024-01-14 07:30] VITALS: RESP 16
[2024-01-14 19:50] VITALS: RESP 16
[2024-01-15 07:26] VITALS: RESP 16
[2024-01-15 08:00] VITALS: RESP 16
[2024-01-15 19:00] VITALS: RESP 16
[2024-01-15 19:57] VITALS: BP 167/88; PULSE 95; RESP 18; TEMP 97.6
[2024-01-16 07:55] VITALS: RESP 16
[2024-01-16 08:54] VITALS: RESP 16
[2024-01-16 19:00] VITALS: RESP 16
[2024-01-16 20:00] VITALS: RESP 18
[2024-01-17 07:37] VITALS: RESP 16
[2024-01-17 08:19] LABS: ALANINE AMINOTRANSFERASE 27 U/L (12-78); ALBUMIN 3.5 G/DL (3.4-5.0); ALBUMIN/GLOBULIN RATIO 0.9 (1.1-1.5); ALKALINE PHOSPHATASE 84 IU/L (46-116); ANION GAP 13 (8-16); ASPARTATE AMINO TRANSFERASE 15 U/L (10-37); BILIRUBIN,TOTAL 0.3 MG/DL (0.1-1.0); BLOOD UREA NITROGEN 14 MG/DL (7-18); BUN/CREATININE RATIO 18.9 (10.0-20.0); CALCIUM 9.6 MG/DL (8.5-10.1); CHLORIDE 107 MMOL/L (99-107); CREATININE 0.74 MG/DL (0.40-0.90); GLUCOSE 108 MG/DL (70-104); POTASSIUM 3.5 MMOL/L (3.5-5.1); SODIUM 145 MMOL/L (135-145); TOTAL CARBON DIOXIDE 25.5 MMOL/L (24-32); TOTAL PROTEIN 7.4 G/DL (6.4-8.2); eCRCL 67 ML/MIN; eGFR 79 ML/MIN
[2024-01-17 08:28] LABS: BASOPHILS # (AUTO) 0.1 X10'3 (0-0.2); EOSINOPHILS # (AUTO) 0.1 X10'3 (0-0.9); MEAN PLATELET VOLUME 7.5 FL (7.4-10.4); MONOCYTES # (AUTO) 1.1 X10'3 (0-0.9); MONOCYTES % (AUTO) 10.5 % (2-12); WHITE BLOOD COUNT 10.1 X10'3 (4.5-11.0)
[2024-01-17 08:30] LABS: HEMOGLOBIN 14.5 g/dl (12.0-16.0); LYMPHOCYTES # (AUTO) 3.7 X10'3 (1.1-4.8); LYMPHOCYTES % (AUTO) 37.3 % (21-51); MEAN CORPUSCULAR HEMOGLOBIN 31.4 PG (27.0-31.0); MEAN CORPUSCULAR HGB CONC 33.7 g/dL (33.0-36.5); NEUTROPHILS # (AUTO) 5.1 X10'3 (1.8-7.7); NEUTROPHILS % (AUTO) 50.2 % (42-75); PLATELET COUNT 684 X10'3 (140-440); RED BLOOD COUNT 4.62 X10'6 (4.20-5.60); RED CELL DISTRIBUTION WIDTH 14.1 % (11.5-14.5)
[2024-01-17 08:46] VITALS: RESP 20
[2024-01-17] MEDS ORDERED: haloperidol decanoate***LONG-ACTING*** 100mg/ml **IM only** inj. IM ONE (09:10)
[2024-01-17] MEDS: LORazepam 2 mg/ml vial IM ONE (09:43)
[2024-01-17] MEDS: haloperidol lactate 5mg/ml inj IM ONE (09:43)
[2024-01-17 10:21] LABS: LACTIC SEPSIS 3.1 MMOL/L (0.4-2.0)
[2024-01-17 12:07] LABS: BILIRUBIN,URINE NEGATIVE (Neg); CLARITY,URINE CLEAR (Clear); COLOR,URINE YELLOW (Yellow); GLUCOSE, URINE NEGATIVE (Neg); KETONES,URINE NEGATIVE (Neg); LEUKOCYTE ESTERASE ,URINE NEGATIVE (Neg); NITRITES, URINE NEGATIVE (Neg); OCCULT BLOOD,URINE NEGATIVE (Neg); PROTEIN,URINE NEGATIVE (Neg); UROBILINOGEN,URINE 0.2 E.U/dL (0.2-1.0)
[2024-01-17 12:08] LABS: UA COLLECTION TYPE NON-SPECIFIED
[2024-01-17 15:11] VITALS: BP 172/116; PULSE 86; RESP 12; TEMP 97.6; O2SAT 99
[2024-01-17 19:37] VITALS: RESP 16
[2024-01-17 20:29] VITALS: BP 142/91; PULSE 106; RESP 18; TEMP 98.7; O2SAT 98
[2024-01-18 07:00] VITALS: BP 116/69; PULSE 101; RESP 18; TEMP 96.7; O2SAT 97
[2024-01-18] MEDS: haloperidol lactate 5mg/ml inj ONE (16:56)
[2024-01-18] MEDS: LORazepam 2 mg/ml vial ONE (16:56)
[2024-01-18 19:00] VITALS: RESP 14; O2SAT 98
[2024-01-18 20:00] VITALS: BP 136/74; PULSE 88; RESP 14; TEMP 97.8; O2SAT 98
[2024-01-19 07:37] VITALS: BP 145/59; PULSE 75; RESP 16; TEMP 97.2; O2SAT 98
[2024-01-19] MEDS: docusate sod 100mg capsule PO PRN (08:50)
[2024-01-19 08:55] VITALS: RESP 16
[2024-01-19 19:00] VITALS: BP 137/98; PULSE 113; RESP 20; TEMP 97.6; O2SAT 97
[2024-01-20 07:00] VITALS: RESP 18; O2SAT 99
[2024-01-20 08:00] VITALS: BP 132/81; PULSE 88; RESP 18; TEMP 97.8; O2SAT 99
[2024-01-20 19:30] VITALS: BP 118/64; PULSE 79; RESP 16; TEMP 98; O2SAT 98
[2024-01-21 07:00] VITALS: BP 139/58; PULSE 72; RESP 16; TEMP 98.7; O2SAT 100
[2024-01-21 19:30] VITALS: BP 162/69; PULSE 69; RESP 20; TEMP 98.9; O2SAT 95
[2024-01-22 07:00] VITALS: RESP 16
[2024-01-22 08:00] VITALS: RESP 16
[2024-01-22 19:30] VITALS: BP 162/110; PULSE 98; RESP 18; TEMP 98.9; O2SAT 64
[2024-01-22 22:08] VITALS: BP 150/94
[2024-01-23 07:00] VITALS: RESP 16; O2SAT 95
[2024-01-23 07:41] VITALS: BP 143/79; PULSE 86; RESP 12; TEMP 98.2; O2SAT 95
[2024-01-23] MEDS: LORazepam 2 mg/ml vial IM ONE (12:43)
[2024-01-23] MEDS: LORazepam 2 mg/ml vial ONE (12:44)
[2024-01-23 20:26] VITALS: BP 142/73; PULSE 88; PULSE 98; RESP 15; TEMP 98.4; O2SAT 88; O2SAT 98
[2024-01-24 07:28] VITALS: BP 104/57; PULSE 82; RESP 12; TEMP 97.2; O2SAT 98
[2024-01-24] MEDS ORDERED: MULT-1085 PO (10:57)
[2024-01-24] MEDS ORDERED: [UNRECOGNIZED DRUG - CODE] PO (10:57)
[2024-01-24] MEDS ORDERED: QUET25TA PO (10:57)
[2024-01-24] MEDS ORDERED: LEVO50CA4 PO (10:57)
[2024-01-24] MEDS ORDERED: LIT300C PO (10:57)
[2024-01-24] MEDS ORDERED: LURA120T PO (10:57)
[2024-01-24] MEDS ORDERED: TRAZ-256 PO ×2 (10:57)
[2024-01-24] MEDS ORDERED: PROP60TA19 PO (10:57)
[2024-01-24] MEDS ORDERED: LORA-269 PO (10:57)
[2024-01-24] MEDS ORDERED: POLY17PO10 PO (10:57)
[2024-01-24] MEDS ORDERED: QUET100T34 PO (10:57)
== END 2024-01-24 10:06 | DRG 885 ==
LOC: ADULT MH 17:30
PROVIDERS: ADMIT Psychiatry & Neurology Psychiatry; ATTEND Psychiatry & Neurology Psychiatry
PROC: GZHZZZZ Group Psychotherapy (ICD-10-PCS; principal; 2023-12-13)
PROC: GZ51ZZZ Individual Psychotherapy, Behavioral (ICD-10-PCS; 2023-12-13)
DX: F25.9 Schizoaffective disorder, unspecified (principal); N18.30 Chronic kidney disease, stage 3 unspecified; N39.0 Urinary tract infection, site not specified; K92.1 Melena; E03.9 Hypothyroidism, unspecified; K59.00 Constipation, unspecified; G43.909 Migraine, unspecified, not intractable, without status migrainosus; E78.5 Hyperlipidemia, unspecified; E66.3 Overweight; D75.839 Thrombocytosis, unspecified; Z68.25 Body mass index [BMI] 25.0-25.9, adult; Z81.8 Family history of other mental and behavioral disorders; Z80.0 Family history of malignant neoplasm of digestive organs; Z81.3 Family history of other psychoactive substance abuse and dependence; Z88.8 Allergy status to other drugs, medicaments and biological substances; Z79.899 Other long term (current) drug therapy
CPT/HCPCS: 36415; 80053; 80061; 80178; 81001; 81003; 82140; 82948; 83605; 84443; 85025; 87077; 87081; 87088; 87186; C1758; J1630; J2060

== ENCOUNTER 2024-01-24 09:00 | Inpatient (IN) | payer MEDICARE, BC, MEDICAID ==
[~2024-01-24] VITALS: Ht 162.6 cm; Wt 69.4 kg
[~2024-01-24 09:00] MED LIST changes: -ACET-1130; -BACL20TA PO; -BUPR150T8 PO; +DOCU-148 PO; -HALO2TAB PO; +LEVO50TA PO; -LEVO50TA66 PO; +LITH300T3 PO; -LITH450T2 PO; -PANT-47 PO; +PRAZ2CAP2 PO; +PROPRANOLOL PO; -QUET100T34 PO; +QUET200T PO; -QUET300T2 PO; +QUET50TA PO; -TRAZ-251 PO
[2024-01-24] MEDS ORDERED: mag hydrox/Alum hydrox/simeth 30ml oral suspension PO PRN (10:15)
[2024-01-24] MEDS ORDERED: acetaminophen 325mg tablet PO PRN (10:15)
[2024-01-24] MEDS ORDERED: loperamide 2mg capsule PO PRN (10:15)
[2024-01-24] MEDS ORDERED: PROP60TA19 PO (10:57)
[2024-01-24] MEDS ORDERED: QUET25TA PO (10:57)
[2024-01-24] MEDS ORDERED: POLY17PO10 PO (10:57)
[2024-01-24] MEDS ORDERED: LORA-269 PO (10:57)
[2024-01-24] MEDS ORDERED: LIT300C PO (10:57)
[2024-01-24] MEDS ORDERED: MULT-1085 PO (10:57)
[2024-01-24] MEDS ORDERED: TRAZ-256 PO ×2 (10:57)
[2024-01-24] MEDS ORDERED: [UNRECOGNIZED DRUG - CODE] PO (10:57)
[2024-01-24] MEDS ORDERED: LURA120T PO (10:57)
[2024-01-24] MEDS ORDERED: LEVO50CA4 PO (10:57)
[2024-01-24] MEDS ORDERED: QUET100T34 PO (10:57)
[2024-01-24] MEDS: NUT.TX.IMPAIRED DIGEST FXN (Ensure Clear) 237 ML PO SCH (13:33)
[2024-01-24] MEDS: QUEtiapine 25mg tablet PO SCH (17:30)
[2024-01-24] MEDS: polyethylene glycol 3350 17gm powd pack PO SCH (19:52)
[2024-01-24] MEDS: prazosin 1mg capsule PO SCH (19:52)
[2024-01-24] MEDS: quetiapine 100mg tablet PO SCH (19:52)
[2024-01-24] MEDS: traZODone 50mg tablet PO SCH (19:53)
[2024-01-25 07:30] VITALS: BP 108/78; PULSE 58; RESP 16; TEMP 98; O2SAT 98
[2024-01-25] MEDS ORDERED: LURASIDONE 120 MG PO SCH (08:00)
[2024-01-25 08:41] VITALS: RESP 17; O2SAT 97
[2024-01-25] MEDS: lithium carbonate 300mg SR tablet (LithoBID) PO SCH (08:41)
[2024-01-25] MEDS: levoTHYROXINE 25mcg tablet PO SCH (08:41)
[2024-01-25] MEDS: multivitamins, therapeutics tablet PO SCH (08:41)
[2024-01-25] MEDS: gabapentin 100mg capsule PO SCH (08:41)
[2024-01-25] MEDS: propranolol 40mg tablet PO SCH (08:41)
[2024-01-25] MEDS ORDERED: lurasidone 60mg tablet PO SCH (09:22)
[2024-01-25] MEDS: lurasidone 60mg tablet PO ONE (09:25)
[2024-01-25 19:00] VITALS: RESP 12; O2SAT 96
[2024-01-25 20:00] VITALS: BP 112/63; PULSE 57; RESP 12; TEMP 97.2; O2SAT 96
[2024-01-26 06:30] VITALS: RESP 15
[2024-01-26 07:00] VITALS: RESP 15; O2SAT 97
[2024-01-26 19:00] VITALS: RESP 16
[2024-01-27 07:00] VITALS: RESP 18; O2SAT 97
[2024-01-27 08:00] VITALS: BP 154/74; PULSE 68; RESP 18; TEMP 98.3; O2SAT 97
[2024-01-27 12:01] LABS: BASOPHILS # (AUTO) 0.1 X10'3 (0-0.2); BASOPHILS % (AUTO) 1.1 % (0-1); EOSINOPHILS # (AUTO) 0.1 X10'3 (0-0.9); EOSINOPHILS % (AUTO) 1.4 % (0-6); HEMATOCRIT 45.9 % (35.0-45.0); HEMOGLOBIN 15.1 g/dl (12.0-16.0); LYMPHOCYTES # (AUTO) 2.3 X10'3 (1.1-4.8); LYMPHOCYTES % (AUTO) 37.7 % (21-51); MEAN CORPUSCULAR HEMOGLOBIN 30.2 PG (27.0-31.0); MEAN CORPUSCULAR VOLUME 91.6 FL (78-98); MEAN PLATELET VOLUME 8.2 FL (7.4-10.4); MONOCYTES # (AUTO) 0.6 X10'3 (0-0.9); MONOCYTES % (AUTO) 10.5 % (2-12); NEUTROPHILS % (AUTO) 49.3 % (42-75); PLATELET COUNT 482 X10'3 (140-440); RED BLOOD COUNT 5.01 X10'6 (4.20-5.60); RED CELL DISTRIBUTION WIDTH 13.8 % (11.5-14.5)
[2024-01-27 12:15] LABS: ALANINE AMINOTRANSFERASE 23 U/L (12-78); ALBUMIN 3.4 G/DL (3.4-5.0); ALBUMIN/GLOBULIN RATIO 0.9 (1.1-1.5); ALKALINE PHOSPHATASE 84 IU/L (46-116); ANION GAP 10 (8-16); ASPARTATE AMINO TRANSFERASE 13 U/L (10-37); BILIRUBIN,TOTAL 0.4 MG/DL (0.1-1.0); BLOOD UREA NITROGEN 18 MG/DL (7-18); BUN/CREATININE RATIO 21.7 (10.0-20.0); CALCIUM 9.4 MG/DL (8.5-10.1); CHLORIDE 108 MMOL/L (99-107); CREATININE 0.83 MG/DL (0.40-0.90); GLUCOSE 85 MG/DL (70-104); SODIUM 146 MMOL/L (135-145); TOTAL CARBON DIOXIDE 28.1 MMOL/L (24-32); TOTAL PROTEIN 7.4 G/DL (6.4-8.2); eCRCL 60 ML/MIN; eGFR 69 ML/MIN
[2024-01-27] MEDS: lactose-reduced food (Ensure Enlive) - 237ml bottle PO SCH (13:00)
[2024-01-27 19:00] VITALS: BP 143/71; PULSE 74; RESP 18; TEMP 97.4; O2SAT 99
[2024-01-28 08:00] VITALS: BP 185/95; PULSE 76; RESP 12; TEMP 97.7; O2SAT 93
[2024-01-28 19:30] VITALS: BP 162/68; PULSE 68; RESP 18; TEMP 98.1; O2SAT 98
[2024-01-28 23:26] VITALS: BP 142/69
[2024-01-29 07:53] VITALS: PULSE 92; RESP 16; TEMP 98; O2SAT 96
[2024-01-29 19:00] VITALS: RESP 20; O2SAT 99
[2024-01-29 20:00] VITALS: BP 141/90; PULSE 98; RESP 20; TEMP 98.2; O2SAT 99
[2024-01-30] MEDS: LORazepam 1 MG tablet PO PRN (04:27)
[2024-01-30 08:00] VITALS: BP 157/107; PULSE 72; RESP 14; TEMP 98.6; O2SAT 100
[2024-01-30] MEDS: amLODIPine 5mg tablet PO ONE (14:15)
[2024-01-30 19:00] VITALS: RESP 16; O2SAT 99
[2024-01-30 19:29] VITALS: BP 173/74; PULSE 94; RESP 16; TEMP 97.5; O2SAT 99
[2024-01-30 20:45] VITALS: BP 150/90; RESP 16
[2024-01-30] MEDS: haloperidol lactate 5mg/ml inj IM SCH (20:55)
[2024-01-31 08:00] VITALS: BP 158/107; PULSE 72; RESP 14; TEMP 98.6; O2SAT 100
[2024-01-31] MEDS: amLODIPine 5mg tablet PO SCH (08:00)
[2024-01-31 09:58] VITALS: BP 158/107; RESP 16; TEMP 98.6; O2SAT 12
[2024-01-31 10:22] LABS: BASOPHILS # (AUTO) 0.1 X10'3 (0-0.2); EOSINOPHILS # (AUTO) 0.1 X10'3 (0-0.9); EOSINOPHILS % (AUTO) 1.1 % (0-6); HEMATOCRIT 47.7 % (35.0-45.0); HEMOGLOBIN 15.9 g/dl (12.0-16.0); LYMPHOCYTES # (AUTO) 2.4 X10'3 (1.1-4.8); LYMPHOCYTES % (AUTO) 36.9 % (21-51); MEAN CORPUSCULAR HEMOGLOBIN 30.7 PG (27.0-31.0); MEAN CORPUSCULAR HGB CONC 33.4 g/dL (33.0-36.5); MEAN CORPUSCULAR VOLUME 91.9 FL (78-98); MEAN PLATELET VOLUME 8.5 FL (7.4-10.4); MONOCYTES # (AUTO) 0.7 X10'3 (0-0.9); NEUTROPHILS # (AUTO) 3.3 X10'3 (1.8-7.7); PLATELET COUNT 488 X10'3 (140-440); RED BLOOD COUNT 5.19 X10'6 (4.20-5.60); RED CELL DISTRIBUTION WIDTH 14.2 % (11.5-14.5); WHITE BLOOD COUNT 6.5 X10'3 (4.5-11.0)
[2024-01-31 11:20] LABS: ALANINE AMINOTRANSFERASE 56 U/L (12-78); ALBUMIN 3.8 G/DL (3.4-5.0); ALKALINE PHOSPHATASE 93 IU/L (46-116); ANION GAP 11 (8-16); ASPARTATE AMINO TRANSFERASE 40 U/L (10-37); BILIRUBIN,TOTAL 0.5 MG/DL (0.1-1.0); BLOOD UREA NITROGEN 24 MG/DL (7-18); BUN/CREATININE RATIO 33.3 (10.0-20.0); CALCIUM 9.7 MG/DL (8.5-10.1); CHLORIDE 108 MMOL/L (99-107); CREATININE 0.72 MG/DL (0.40-0.90); GLUCOSE 141 MG/DL (70-104); POTASSIUM 3.3 MMOL/L (3.5-5.1); SODIUM 145 MMOL/L (135-145); TOTAL CARBON DIOXIDE 25.8 MMOL/L (24-32); TOTAL PROTEIN 7.6 G/DL (6.4-8.2); eCRCL 69 ML/MIN; eGFR 82 ML/MIN
[2024-01-31 19:30] VITALS: BP 134/68; PULSE 60; RESP 18; TEMP 98.2; O2SAT 98
[2024-02-01 07:00] VITALS: RESP 20; O2SAT 96
[2024-02-01 08:00] VITALS: BP 152/98; PULSE 88; RESP 19; TEMP 98.7; O2SAT 96
[2024-02-01 11:22] VITALS: BP 140/63
[2024-02-01] MEDS ORDERED: magnesium 2GM in 50ml NS 50 ML IV PRN (13:00)
[2024-02-01] MEDS ORDERED: potassium Cl 40MEQ/1/2NS 520ml 520 ML IV PRN (13:00)
[2024-02-01] MEDS ORDERED: potassium Cl 20 mEq SR tablet PO PRN (13:00)
[2024-02-01] MEDS ORDERED: magnesium Cl slow-release 64mg tablet PO PRN (13:00)
[2024-02-01] MEDS ORDERED: magnesium 4gm in 100ml NS 100 ML IV PRN (13:00)
[2024-02-01] MEDS: lactose-reduced food (Ensure Enlive) - 237ml bottle PO SCH (18:00)
[2024-02-01 19:30] VITALS: BP 128/90; PULSE 66; RESP 18; TEMP 98.4; O2SAT 95
[2024-02-01] MEDS: K and/or MAG REPLACEMENT MC SCH (20:00)
[2024-02-02 07:00] VITALS: RESP 18; O2SAT 95
[2024-02-02 08:00] VITALS: BP 132/83; PULSE 68; RESP 15; TEMP 98.5; O2SAT 99
[2024-02-02] MEDS: pantoprazole 40mg Tablet.DR PO SCH (08:41)
[2024-02-02 10:34] LABS: MAGNESIUM 2.5 MG/DL (1.5-2.4); POTASSIUM 3.8 MMOL/L (3.5-5.1)
[2024-02-02] MEDS: haloperidol lactate 5mg/ml inj IM SCH (13:00)
[2024-02-02] MEDS: magnesium hydroxide 30ml (MOM) UD suspension PO PRN (15:33)
[2024-02-02 16:01] LABS: BILIRUBIN,URINE NEGATIVE (Neg); CLARITY,URINE CLOUDY (Clear); COLOR,URINE YELLOW (Yellow); GLUCOSE, URINE NEGATIVE (Neg); KETONES,URINE NEGATIVE (Neg); LEUKOCYTE ESTERASE ,URINE NEGATIVE (Neg); NITRITES, URINE NEGATIVE (Neg); OCCULT BLOOD,URINE NEGATIVE (Neg); PH,URINE 5.5 (4.8-8.0); PROTEIN,URINE NEGATIVE (Neg); UROBILINOGEN,URINE 0.2 E.U/dL (0.2-1.0)
[2024-02-02 16:08] LABS: UA COLLECTION TYPE CLN CATCH MIDSTREAM
[2024-02-02 16:24] LABS: MUCUS STRANDS MANY /LPF (Neg); SQUAMOUS EPITHELIAL CELL,UR MANY /LPF (FEW)
[2024-02-02 16:25] LABS: BACTERIA,URINE 1+ /HPF (Neg); HYALINE CASTS >30 /LPF (NEGATIVE); RBC,URINE 0-2 /HPF (0-2); WBC,URINE 0-4 /HPF (0-4)
[2024-02-03 07:30] VITALS: BP 144/49; PULSE 85; RESP 18; TEMP 96.8; O2SAT 98
[2024-02-03 08:27] LABS: MAGNESIUM 2.4 MG/DL (1.5-2.4); POTASSIUM 3.4 MMOL/L (3.5-5.1)
[2024-02-03] MEDS: lithium carbonate 150mg capsule PO SCH (09:47)
[2024-02-03] MEDS: potassium Cl 20 mEq SR tablet PO PRN (09:49)
[2024-02-03 20:03] VITALS: BP 98/48; PULSE 60; RESP 20; TEMP 97.3; O2SAT 96
[2024-02-04 07:00] VITALS: RESP 16
[2024-02-04 08:00] VITALS: RESP 16
[2024-02-04] MEDS: haloperidol lactate 5mg/ml inj IM PRN (11:45)
[2024-02-04 19:49] VITALS: BP 126/59; PULSE 91; RESP 18; TEMP 97.4; O2SAT 99
[2024-02-04] MEDS: docusate sod 100mg capsule PO PRN (20:09)
[2024-02-05 07:00] VITALS: BP 104/79; PULSE 74; RESP 18; TEMP 98.5; O2SAT 97
[2024-02-05] MEDS: LORazepam 2 mg/ml vial IM ONE (09:45)
[2024-02-05 14:07] LABS: MAGNESIUM 2.5 MG/DL (1.5-2.4); POTASSIUM 3.6 MMOL/L (3.5-5.1)
[2024-02-05] MEDS ORDERED: ondansetron 4mg rapidly disintigrating tab PO PRN (19:10)
[2024-02-05] MEDS ORDERED: diphenoxylate/atropine tablet (Lomotil) PO PRN (19:10)
[2024-02-05 20:00] VITALS: BP 136/68; PULSE 70; RESP 15; TEMP 98.7; O2SAT 97
[2024-02-06 07:00] VITALS: RESP 12; O2SAT 96
[2024-02-06 07:42] VITALS: BP 136/91; PULSE 77; RESP 12; TEMP 97.9; O2SAT 96
[2024-02-06 20:00] VITALS: BP 151/81; PULSE 112; RESP 15; TEMP 97.4; O2SAT 94
[2024-02-06 23:47] VITALS: PULSE 93
[2024-02-07 07:00] VITALS: RESP 16
[2024-02-07 07:49] VITALS: RESP 16
[2024-02-07 19:30] VITALS: RESP 15
[2024-02-08 08:00] VITALS: TEMP 97.4
[2024-02-08 14:26] VITALS: BP 145/81; PULSE 85; RESP 16; TEMP 98.9; O2SAT 95
[2024-02-08 19:30] VITALS: BP 152/88; PULSE 74; RESP 18; TEMP 98; O2SAT 96
[2024-02-09 07:30] VITALS: BP 115/69; PULSE 88; RESP 16; TEMP 98; O2SAT 95
[2024-02-09 09:56] VITALS: BP 97/46; PULSE 75; RESP 16; TEMP 98; O2SAT 98
[2024-02-09] MEDS: acetaminophen 325mg tablet PO PRN (11:32)
[2024-02-09 19:00] VITALS: RESP 16; O2SAT 98
[2024-02-09 20:00] VITALS: BP 106/71; PULSE 65; RESP 16; TEMP 98; O2SAT 98
[2024-02-10] MEDS: traZODone 50mg tablet PO PRN (02:51)
[2024-02-10 07:30] VITALS: BP 128/62; PULSE 67; RESP 16; TEMP 97.5; O2SAT 99
[2024-02-10 19:00] VITALS: RESP 16; O2SAT 98
[2024-02-10 20:00] VITALS: BP 127/68; PULSE 64; RESP 16; TEMP 97.3; O2SAT 98
[2024-02-11 07:00] VITALS: RESP 14
[2024-02-11 08:00] VITALS: RESP 14
[2024-02-11 19:00] VITALS: RESP 14; O2SAT 99
[2024-02-11 20:00] VITALS: BP 96/42; PULSE 67; RESP 14; TEMP 97.6; O2SAT 99
[2024-02-12 07:01] VITALS: RESP 14
[2024-02-12 07:30] VITALS: RESP 16
[2024-02-12 19:00] VITALS: RESP 16; O2SAT 98
[2024-02-12 20:00] VITALS: BP 100/47; PULSE 54; RESP 16; TEMP 98.2; O2SAT 98
[2024-02-13 07:00] VITALS: RESP 16; O2SAT 99
[2024-02-13 07:07] VITALS: BP 101/44; PULSE 54; RESP 16; TEMP 98.6; O2SAT 99
[2024-02-13 19:00] VITALS: RESP 12; O2SAT 98
[2024-02-13 19:57] VITALS: BP 113/46; PULSE 60; RESP 12; TEMP 98.5; O2SAT 98
[2024-02-14 07:13] VITALS: RESP 16; O2SAT 99
[2024-02-14 07:23] VITALS: RESP 16
[2024-02-14 19:20] VITALS: RESP 18; O2SAT 99
[2024-02-14 20:00] VITALS: BP 104/47; PULSE 56; RESP 18; TEMP 97.8; O2SAT 99
[2024-02-15 07:00] VITALS: BP 111/52; PULSE 55; RESP 18; TEMP 98.8; O2SAT 96
[2024-02-15] MEDS ORDERED: magnesium citrate 296ml oral solution PO PRN (16:30)
[2024-02-15 19:00] VITALS: RESP 16; O2SAT 99
[2024-02-15 20:00] VITALS: BP 114/62; PULSE 64; RESP 16; TEMP 98.2; O2SAT 99
[2024-02-16 07:00] VITALS: RESP 16; O2SAT 98
[2024-02-16 07:34] VITALS: BP 109/59; PULSE 55; RESP 16; TEMP 97.8; O2SAT 98
[2024-02-16 19:00] VITALS: RESP 16; O2SAT 99
[2024-02-16 19:26] VITALS: BP 121/76; PULSE 78; RESP 16; TEMP 97.8; O2SAT 99
[2024-02-17 07:00] VITALS: BP 109/60; PULSE 60; RESP 16; TEMP 97.8; O2SAT 60
[2024-02-17 19:50] VITALS: BP 116/69; PULSE 64; RESP 16; TEMP 98.8; O2SAT 97
[2024-02-18 07:00] VITALS: RESP 15; O2SAT 96
[2024-02-18] MEDS ORDERED: TRAZ-256 PO (07:11)
[2024-02-18] MEDS ORDERED: PANT40TA54 PO (07:11)
[2024-02-18] MEDS ORDERED: LEVO50TA8 PO (07:11)
[2024-02-18] MEDS ORDERED: MULT-25 PO (07:11)
[2024-02-18] MEDS ORDERED: INDLA60C PO (07:11)
[2024-02-18] MEDS ORDERED: GABA-530 PO (07:11)
[2024-02-18] MEDS ORDERED: PRAZ1CAP5 PO (07:11)
[2024-02-18] MEDS ORDERED: QUET400T13 PO (07:11)
[2024-02-18] MEDS ORDERED: DOCU100C40 PO (07:11)
[2024-02-18] MEDS ORDERED: NOR5T PO (07:11)
[2024-02-18] MEDS ORDERED: LIT300C PO (07:11)
[2024-02-18] MEDS ORDERED: QUET-1 PO (07:19)
[2024-02-18 07:30] VITALS: BP 122/65; PULSE 57; RESP 15; TEMP 97.1; O2SAT 96
[2024-02-18 08:00] VITALS: BP_SYST 122; PULSE 57
[2024-02-18 09:48] LABS: ALBUMIN 2.7 G/DL (3.4-5.0); ANION GAP 5 (8-16); BLOOD UREA NITROGEN 16 MG/DL (7-18); BUN/CREATININE RATIO 18.4 (10.0-20.0); CALCIUM 8.9 MG/DL (8.5-10.1); CHLORIDE 108 MMOL/L (99-107); CREATININE 0.87 MG/DL (0.40-0.90); GLUCOSE 89 MG/DL (70-104); POTASSIUM 4.3 MMOL/L (3.5-5.1); SODIUM 143 MMOL/L (135-145); TOTAL CARBON DIOXIDE 30.4 MMOL/L (24-32); eCRCL 56 ML/MIN; eGFR 66 ML/MIN
[2024-02-18 09:51] LABS: LITHIUM 0.5 MMOL/L (0.8-1.2)
== END 2024-02-18 11:20 | disposition home or self-care (01) | DRG 885 ==
LOC: ADULT MH 09:00
PROVIDERS: ADMIT Psychiatry & Neurology Psychiatry; ATTEND Psychiatry & Neurology Psychiatry
PROC: GZHZZZZ Group Psychotherapy (ICD-10-PCS; principal; 2024-02-15)
PROC: GZ51ZZZ Individual Psychotherapy, Behavioral (ICD-10-PCS; 2024-02-15)
DX: F25.0 Schizoaffective disorder, bipolar type (principal); E03.9 Hypothyroidism, unspecified; E78.5 Hyperlipidemia, unspecified; I10 Essential (primary) hypertension; G43.909 Migraine, unspecified, not intractable, without status migrainosus; Z20.822 Contact with and (suspected) exposure to COVID-19; K21.9 Gastro-esophageal reflux disease without esophagitis; K58.9 Irritable bowel syndrome, unspecified; E87.6 Hypokalemia; Z91.148 Patient's other noncompliance with medication regimen for other reason; Z88.8 Allergy status to other drugs, medicaments and biological substances
CPT/HCPCS: 36415; 80048; 80053; 80178; 81001; 83735; 84132; 85025; 87081; 87811; J1630; J2060

== ENCOUNTER 2024-09-28 13:37 | Emergency (ER) | payer MEDICARE, BC, MEDICAID ==
[~2024-09-28] VITALS: Ht 162.6 cm; Wt 65.0 kg
[~2024-09-28 13:37] MED LIST changes: -DOCU-148 PO; +DOCU100C40 PO; +INDLA60C PO; -LEVO50TA PO; +LEVO50TA8 PO; +LIT300C PO; -LITH300T3 PO; -LURA80TA2 PO; +MULT-25 PO; +NOR5T PO; +PANT40TA54 PO; +PRAZ1CAP5 PO; -PRAZ2CAP2 PO; -PROPRANOLOL PO; +QUET-1 PO; -QUET200T PO; +QUET400T13 PO; -QUET50TA PO; +TRAZ-256 PO
[2024-09-28 14:11] LABS: BASOPHILS # (AUTO) 0.1 X10'3 (0-0.2); BASOPHILS % (AUTO) 0.5 % (0-1); EOSINOPHILS # (AUTO) 0.3 X10'3 (0-0.9); EOSINOPHILS % (AUTO) 3.3 % (0-6); HEMATOCRIT 39.6 % (35.0-45.0); HEMOGLOBIN 13.4 g/dl (12.0-16.0); LYMPHOCYTES # (AUTO) 2.3 X10'3 (1.1-4.8); LYMPHOCYTES % (AUTO) 23.8 % (21-51); MEAN CORPUSCULAR HEMOGLOBIN 31.6 PG (27.0-31.0); MEAN CORPUSCULAR HGB CONC 33.8 g/dL (33.0-36.5); MEAN CORPUSCULAR VOLUME 93.6 FL (78-98); MONOCYTES # (AUTO) 0.8 X10'3 (0-0.9); MONOCYTES % (AUTO) 8.7 % (2-12); NEUTROPHILS # (AUTO) 6.1 X10'3 (1.8-7.7); NEUTROPHILS % (AUTO) 63.7 % (42-75); PLATELET COUNT 353 X10'3 (140-440); RED BLOOD COUNT 4.23 X10'6 (4.20-5.60); WHITE BLOOD COUNT 9.6 X10'3 (4.5-11.0)
[2024-09-28 14:19] LABS: ALANINE AMINOTRANSFERASE 27 U/L (12-78); ALBUMIN 3.5 G/DL (3.4-5.0); ALBUMIN/GLOBULIN RATIO 1.1 (1.1-1.5); ALKALINE PHOSPHATASE 108 IU/L (46-116); ANION GAP 3 (8-16); ASPARTATE AMINO TRANSFERASE 21 U/L (10-37); BILIRUBIN,TOTAL 0.2 MG/DL (0.1-1.0); BLOOD UREA NITROGEN 24 MG/DL (7-18); BUN/CREATININE RATIO 24.2 (10.0-20.0); CALCIUM 9.2 MG/DL (8.5-10.1); CHLORIDE 102 MMOL/L (99-107); CREATININE 0.99 MG/DL (0.40-0.90); GLUCOSE 105 MG/DL (70-104); POTASSIUM 3.7 MMOL/L (3.5-5.1); SODIUM 136 MMOL/L (135-145); TOTAL CARBON DIOXIDE 30.6 MMOL/L (24-32); TOTAL PROTEIN 6.8 G/DL (6.4-8.2); eCRCL 50 ML/MIN; eGFR 56 ML/MIN
[2024-09-28 14:26] LABS: PRO BRAIN NATRIURETIC PEPTIDE 61 PG/ML (0-125)
[2024-09-28] MEDS: acetaminophen 325mg tablet PO ONE (20:51)
[2024-09-28 21:07] VITALS: BP 120/70; PULSE 69; RESP 18; TEMP 98.6; O2SAT 99
== END 2024-09-28 21:09 | disposition home or self-care (01) ==
LOC: ER 13:37
DX: M79.10 Myalgia, unspecified site (principal); R07.9 Chest pain, unspecified; F31.9 Bipolar disorder, unspecified; Z88.8 Allergy status to other drugs, medicaments and biological substances
CPT/HCPCS: 36415; 71045; 80053; 83880; 84484; 85025; 93005; 99285

== ENCOUNTER 2025-10-06 13:55 | Emergency (ER) | payer MEDICARE, BC, MEDICAID ==
[~2025-10-06] VITALS: Ht 165.1 cm; Wt 70.5 kg
[2025-10-06 14:01] VITALS: BP 153/75; PULSE 68; TEMP 97.8; O2SAT 99
--- NOTE | 2025-10-06 14:01 | Physician Documentation ---
History of Present Illness General Stated Complaint: 5150 Time Seen by MD: 14:00 Primary Medical Doctor: n/a History of Present Illness Initial Comments 65-year-old female brought in his a 5150 after she allegedly told worker's that she was considering hurting herself with a knife, she was at a breast exam appointment when she has made these statements. The patient currently denies suicidal ideations. Patient has a an extensive psychiatric history. The patient states she has tried to choke herself in the past and she states she has tried to drown herself in the past. She denies any homicidal ideations. She denies any recent illness. Medication Reconciliation Allergies: Coded Allergies: diphenhydramine (Verified Allergy, Intermediate, TONGUE SWELLING, 12/17/19) fluphenazine (Verified Allergy, Intermediate, JAW LOCKS, 12/17/19) Scheduled Amlodipine Besylate (Amlodipine Besylate), 5 MG PO DAILY Benztropine Mesylate (Benztropine Mesylate), 1 TAB PO DAILY, (Reported) Haloperidol (Haloperidol), 3 TAB PO Q12H, (Reported) Levothyroxine Sodium (Levothyroxine Sodium), 1 TAB PO DAILY Mirtazapine (Mirtazapine), 1 TAB PO HS, (Reported) Olanzapine (Olanzapine), 1 TAB PO HS, (Reported) Olanzapine (Olanzapine), 1 TAB PO HS, (Reported) Pantoprazole Sodium (Pantoprazole Sodium), 40 MG PO BKF Discontinued Medications Docusate Sodium (Docusate Sodium), 200 MG PO BID PRN for constipation Discontinued Reason: patient no longer taking Gabapentin (Gabapentin), 100 MG PO DAILY Discontinued Reason: patient no longer taking Haloperidol (Haloperidol), 1 TAB PO BID, (Reported) Discontinued Reason: wrong med [place] Carbonate (LITHIUM CARBONATE tablet), 2 TAB PO DAILY Discontinued Reason: patient no longer taking Multivitamin with Folic Acid (Thera Tablet), 1 EACH PO Q24H Discontinued Reason: patient no longer taking Prazosin Hcl (Prazosin Hcl), 2 MG PO HS Discontinued Reason: patient no longer taking Propranolol HCl (Propranolol HCl), 1 CAP PO DAILY Discontinued Reason: patient no longer taking Quetiapine Fumarate (Quetiapine Fumarate), 1 TAB PO HS Discontinued Reason: patient no longer taking Quetiapine Fumarate (Seroquel), 100 MG PO HS Discontinued Reason: patient no longer taking Trazodone HCl (Trazodone HCl), 1 TAB PO HS Discontinued Reason: patient no longer taking Past Medical History Past Medical History: Seizures, Bipolar Past Surgical History: noncontributory Alcohol Use: None Lives with: Spouse Lives In: Home Review of Systems All Other Systems at this time: Reviewed and Negative Physical Exam Physical Exam Physical Exam VITALS: Reviewed and as above. GENERAL: Alert, no apparent distress. HEENT: Normocephalic, atraumatic, PERRL, EOMI, dry mucosa, no erythema RESPIRATORY: Lungs clear, normal breath sounds, no respiratory distress. CHEST: No accessory muscle use, no retractions CV: Regular rate, rhythm, no edema, no murmur, No: JVD GI: Soft, non-tender, bowels sounds present, no rebound, guarding, or rigidity BACK: No CVA tenderness, or swelling MUSCULOSKELETAL: No deformities, no edema SKIN: Warm and dry, no rash NEURO: Oriented x4, No motor or sensory deficit PSYCH: The patient it was fixated on telling me about her has been, she had to be frequently redirected. She was somewhat agitated and denies any active suicidal or homicidal ideations. The patient became agitated when I left the room and stated I was shitty doctor" Progress Results/Orders Results/Orders Orders - OHLFSYG MD Med Rec (10/06/25 14:30) Close Observation Level (10/06/25 14:30) Covid19 Binax Poc Result Entry (10/06/25 14:30) Completed Orders - OHYG MEDLEY MD Cbc/Diff (10/06/25 14:30) Hcg, Ur Ql (10/06/25 14:30) Drug Screen, Urine (10/06/25 14:30) Ethanol (10/06/25 14:30) TSH (10/06/25 14:30) BMP (10/06/25 14:30) Regular Diet (10/06/25 Dinner) Ua With Microscopic (10/06/25 14:49) Vital Signs 10/06/25 10/06/25 14:01 14:43 Temp 97.8 Pulse 68 Resp 17 16 B/P (MAP) 153/75 Pulse Ox 99 Laboratory Tests Test 10/06/25 14:15 10/06/25 14:49 White Blood Count 5.5 Red Blood Count 4.47 Hemoglobin 13.7 Hematocrit 40.6 Mean Corpuscular Volume 90.9 Mean Corpuscular Hemoglobin 30.6 Mean Corpuscular Hemoglobin Concent 33.7 Red Cell Distribution Width 15.5 H Platelet Count 457 H Mean Platelet Volume 7.9 Neutrophils (%) (Auto) 43.1 Lymphocytes (%) (Auto) 44.2 Monocytes (%) (Auto) 9.0 Eosinophils (%) (Auto) 2.6 Basophils (%) (Auto) 1.1 H Neutrophils # (Auto) 2.4 Lymphocytes # (Auto) 2.4 Monocytes # (Auto) 0.5 Eosinophils # (Auto) 0.1 Basophils # (Auto) 0.1 CBC Comment Sodium Level 140 Potassium Level 4.1 Chloride Level 108 H Carbon Dioxide Level 25.5 Anion Gap 7 L Blood Urea Nitrogen 22 H Creatinine 0.60 Estimated GFR/1.73 m2 > 90 BUN/Creatinine Ratio 36.7 H Glucose Level 73 Calcium Level 8.9 Albumin 3.6 Thyroid Stimulating Hormone (TSH) 2.31 Chemistry Comments Ethyl Alcohol Level < 10 Urine Specimen Description Non-specified Urine Color Straw Urine Clarity Clear Urine pH 6.0 Urine Specific [place] <=1.005 Urine Protein Negative Urine Glucose (UA) Negative Urine Ketones Negative Urine Occult Blood Negative Urine Nitrite Negative Urine Bilirubin Negative Urine Urobilinogen 0.2 Urine Leukocyte Esterase Trace H Urine RBC 0-2 Urine WBC 0-4 Urine Squamous Epithelial Cells Few Urine Bacteria None seen Volume Urine Centrifuged 10 ml Urine HCG, Qualitative Negative Urine Comment Urine Opiates Screen Negative Urine Methadone Screen Negative Urine Fentanyl Screen Negative Urine Barbiturates Screen Negative Urine Phencyclidine Screen Negative Urine Amphetamines Screen Negative Urine Benzodiazepines Screen Negative Urine Cocaine Screen Negative Urine Cannabinoids Screen Negative Drug Screen Comment SARS-CoV-2 Antigen (Rapid) Negative Medical Decision Making Additional information obtaine: old records Findings The patient is medically cleared for mental health evaluation. Differential Diagnosis Borderline personality disorder, depression Departure Impression: Primary Impression: Suicidal ideation Discharge Instructions: Suicidal Feelings: How to Help Yourself Referrals: NO PRIMARY CARE PROVIDER (PCP) Signature Scribe Signature: no scribe Attestation: The note accurately reflects work and decisions made by me.Yg Baca MD 10/10/25 08:04 YG BACA MD Oct 06, 2025 14:01
[2025-10-06 14:36] LABS: MEAN PLATELET VOLUME 7.9 FL (7.4-10.4); RED CELL DISTRIBUTION WIDTH 15.5 % (11.5-14.5)
[2025-10-06 14:43] VITALS: RESP 16
[2025-10-06 14:59] LABS: CREATININE 0.60 MG/DL (0.40-0.90); ETHANOL < 10 MG/DL (<10); TOTAL CARBON DIOXIDE 25.5 MMOL/L (24-32); eCRCL 84 ML/MIN; eGFR > 90 ML/MIN
[2025-10-06] MEDS ORDERED: BENZ0.5T3 PO (15:03)
[2025-10-06] MEDS ORDERED: MIRT-88 PO (15:03)
[2025-10-06] MEDS ORDERED: HALO5TAB PO ×2 (15:03→15:08)
[2025-10-06] MEDS ORDERED: OLAN10TA73 PO (15:07)
[2025-10-06] MEDS ORDERED: OLAN20TA81 PO (15:07)
[2025-10-06 15:19] LABS: URINE HCG NEGATIVE (NEG)
[2025-10-06 15:23] LABS: LEUKOCYTE ESTERASE ,URINE TRACE (Neg); NITRITES, URINE NEGATIVE (Neg); OCCULT BLOOD,URINE NEGATIVE (Neg)
[2025-10-06 15:28] LABS: URINE AMPHETAMINE SCREEN NEGATIVE (Neg); URINE BARBITUATE SCREEN NEGATIVE (Neg); URINE BENZODIAZEPINES SCREEN NEGATIVE (Neg); URINE CANNABINOID SCREEN NEGATIVE (Neg); URINE COCAINE SCREEN NEGATIVE (Neg); URINE METHADONE SCREEN NEGATIVE (Neg); URINE OPIATE SCREEN NEGATIVE (Neg); URINE PHENCYCLIDINE SCREEN NEGATIVE (Neg)
[2025-10-06 15:32] LABS: UA COLLECTION TYPE NON-SPECIFIED
[2025-10-06 15:35] LABS: SQUAMOUS EPITHELIAL CELL,UR FEW /LPF (FEW)
== END 2025-10-06 18:50 ==
LOC: ER 13:56
DX: Z00.8 Encounter for other general examination (principal); F31.9 Bipolar disorder, unspecified; Z88.8 Allergy status to other drugs, medicaments and biological substances; Z79.899 Other long term (current) drug therapy; Z20.822 Contact with and (suspected) exposure to COVID-19
CPT/HCPCS: 36415; 80048; 80305; 81001; 81025; 84443; 85025; 87811; 99285; G0480; 80320

== ENCOUNTER 2025-10-21 02:14 | Emergency (ER) | payer MEDICARE, BC, MEDICAID ==
[~2025-10-21] VITALS: Ht 157.5 cm; Wt 75.0 kg
[~2025-10-21 02:14] MED LIST changes: +BENZ0.5T3 PO; -DOCU100C40 PO; -GABA-530 PO; +HALO5TAB PO; -INDLA60C PO; -LIT300C PO; +MIRT-88 PO; -MULT-25 PO; +OLAN10TA73 PO; +OLAN20TA81 PO; -PRAZ1CAP5 PO; -QUET-1 PO; -QUET400T13 PO; -TRAZ-256 PO
--- NOTE | 2025-10-21 07:33 | Physician Documentation ---
History of Present Illness ~ Chief Complaint: Back Pain Stated Complaint: BACK PAIN Time Seen by MD: 06:45 OK to notify your PCP?: Yes Primary Medical Doctor: n/a Mode of Arrival: POV HPI 65-year-old female patient with a chronic back problem and has psychiatric illness came to the emergency room because she wants to talk to a bulk mail clerk as her mechelle is shaky. Medication Reconciliation Allergies: Coded Allergies: diphenhydramine (Verified Allergy, Intermediate, TONGUE SWELLING, 10/21/25) fluphenazine (Verified Allergy, Intermediate, JAW LOCKS, 10/22/25) TOLERATED ATARAX IN 2019 Scheduled Amlodipine Besylate (Amlodipine Besylate), 5 MG PO DAILY Amlodipine Besylate (Norvasc), 1 TAB PO DAILY, (Reported) Benztropine Mesylate (Benztropine Mesylate), 1 TAB PO DAILY, (Reported) Haloperidol (Haloperidol), 3 TAB PO Q12H, (Reported) Levothyroxine Sodium (Levothyroxine Sodium), 1 TAB PO DAILY Levothyroxine Sodium (Synthroid), 1 TAB PO DAILY, (Reported) Lurasidone HCl (Latuda), 1 TAB PO HS, (Reported) Olanzapine (Olanzapine), 1 TAB PO HS, (Reported) Olanzapine (Olanzapine), 1 TAB PO HS, (Reported) Pantoprazole Sodium (Pantoprazole Sodium), 40 MG PO BKF Pantoprazole Sodium (Pantoprazole Sodium), 1 TAB PO BKF, (Reported) Discontinued Medications Lurasidone HCl (Lurasidone HCl), (Reported) Discontinued Reason: Other Mirtazapine (Mirtazapine), 1 TAB PO HS, (Reported) Discontinued Reason: patient no longer taking Past Medical History Past Medical History: Seizures, Bipolar Past Surgical History: noncontributory Patient History: Patient reports no known family medical history. Alcohol Use: None Lives with: Spouse Lives In: Home Review of Systems ROS As stated above in the HPI, otherwise all systems are reviewed and negative. Physical Exam Physical Exam Vital Signs: Heart Rate: 75, Respiratory Rate: 16, BP: 138/83, Pulse Oximetry: 99, Weight: 75.000 Physical Exam Reviewed vital signs and they are well within normal range. Const: Not in acute cardiopulmonary distress, the patient is comfortable Head: Atraumatic Eyes: Normal Conjunctiva ENT: Normal External Ears, Nose and Mouth. Moist mucous membranes Neck: Full range of motion. No meningismus Resp: Clear to auscultation bilaterally. Normal work of breathing Cardio: Regular rate and rhythm, no murmurs. Skin well perfused Abd: Soft, non-tender, non-distended. Normal bowel sounds. No rebound or guarding Skin: No petechiae or rashes. Warm and dry Back: No midline or flank tenderness Ext: No cyanosis, or edema Neuro: Awake and alert Psych: Normal Mood and Affect No SI Progress Results/Orders Results/Orders Vital Signs 10/21/25 10/21/25 10/21/25 02:15 05:22 07:45 Temp 98.3 Pulse 79 75 86 Resp 18 16 18 B/P (MAP) 148/78 138/83 (101) 125/76 Pulse Ox 99 99 99 Medical Decision Making Additional information obtaine: old records Findings During the physical examination, the findings suggestive of acute life- threatening condition such as JVD, tracheal deviation, acidotic breathing, noisy stridorous breath sounds, pulses paradoxus, muffled heart sounds, unequal breath sounds, abdominal rigidity and rebound tenderness, focal neurological deficits, cool clammy skin, severe hypotension, severe tachycardia or bradycardia are absent. The patient is not in any distress. I will see whether we can get a bulk mail clerk. We will provide her breakfast and probably let her go home. Patient does not have identifiable emergent medical condition that warrants inpatient medical care at this time. The patient is deemed safe for discharge with outpatient follow up. DISCLAIMER Inadvertent spelling and grammatical errors,inadvertent eyeglass fitter errors,syntax errors, grammatical errors, and spelling errors are likely due to EMR/dictation software use and do not reflect on the overall quality of patient care. Note that the electronic time recorded on this note does not necessarily reflect the actual time of the patient encounter. Differential Dx:Considerations: Other (loneliness) Departure Disposition: 01 HOME / SELF CARE / HOMELESS Impression: Primary Impression: Hunger Condition: Stable Discharge Instructions: Back Exercises Additional Instructions: Thank you for coming to our Emergency Department today. Please ask your nurse or provider if you have questions about your care today and do not leave until all your questions have been answered. Please use any medications given as directed and follow-up with your doctor (or the doctor you were referred to) in the next 1-3 days. Your primary care doctor can help to coordinate outpatient specialty care and provide authorization for specialty referral as needed. If you do not have a primary care doctor you may follow up at a [facility]. You may also use motrin and tylenol as needed for fever and/or pain unless instructed otherwise by your provider or nurse. Indications for more urgent follow-up have been discussed, but you may return to the Emergency Department at ANY time for any worrisome or worsening symptoms. County Facilities: County Facilities: [facility]: [facility] [place] Address:[address] [place] [address] [facility]: [place] Address:[address] [place] [id number] [facility]: [facility] Address:[address] [place] [address] [facility] Address:[address] [place] [address] Registration Billing Pharmacy Referrals [facility] Address:[address] [place] [address] Referrals: NO PRIMARY CARE PROVIDER (PCP) Education Educated: Patient Signature Scribe Signature: x Attestation: LOREN Giraldo MD Oct 21, 2025 07:32
[2025-10-21 07:45] VITALS: BP 125/76; PULSE 86; RESP 18; TEMP 98.3; O2SAT 99
[2025-10-21] MEDS ORDERED: LURA80TA4 (18:46)
[2025-10-21] MEDS ORDERED: LURA80TA2 PO (18:47)
[2025-10-22] MEDS ORDERED: AMLO5TAB5 PO (12:35)
[2025-10-22] MEDS ORDERED: LEVO50TA PO (12:35)
[2025-10-22] MEDS ORDERED: PANT40TA54 PO (12:35)
== END 2025-10-21 08:20 | disposition home or self-care (01) ==
LOC: ER 02:15
DX: T73.0XXA Starvation, initial encounter (principal); G89.29 Other chronic pain; M54.9 Dorsalgia, unspecified; F31.9 Bipolar disorder, unspecified; Z88.8 Allergy status to other drugs, medicaments and biological substances; Z79.899 Other long term (current) drug therapy; X58.XXXA Exposure to other specified factors, initial encounter
CPT/HCPCS: 99283